=== PATIENT | male | born 1940 | race Caucasian/White ===

== ENCOUNTER 2018-10-01 21:08 | Emergency (ER) | payer MEDICARE, OTHER, SELFPAY ==
[2018-10-01 21:25] VITALS: BP 153/88; PULSE 100; RESP 20; TEMP 36.6; O2SAT 98
--- NOTE | 2018-10-01 21:25 | DI.RAD.S_ITS ---
PROCEDURE: XR FINGER LT MIN 2V INDICATIONS: Hit finger on metal TECHNIQUE: AP hand, 2 views of the left fourth finger(s) acquired. COMPARISON: None. FINDINGS: Bones: No fracture. The left fourth middle phalanges dislocated dorsally. Soft tissues: No suspicious soft tissue calcifications. IMPRESSION: Left fourth PIP joint dislocation. Dictated by: Darling Vergara MD, PhD on 10/01/2018 at 22:01 Approved by: Darling Vergara MD, PhD on 10/01/2018 at 22:03
--- NOTE | 2018-10-01 21:42 | ED.UPPEXIN ---
HPI - Extremity Injury (Upper) General Chief Complaint: Extremity Injury, Upper Stated Complaint: lt 4th finger dislocation Time Seen by Provider: 10/01/18 21:35 Source: patient Mode of arrival: ambulatory Limitations: no limitations History of Present Illness HPI narrative: 77-year-old male here for evaluation of what he thinks is a dislocated left ring finger. He states that he fell backwards landing on his hand. Did not hit his head. No other injuries. He states that he tried to reduce it himself however was unable to. Related Data Home Medications Medication Instructions Recorded Confirmed ALLOPURINOL 500 mg PO Q DAY #0 11/01/06 ASPIRIN (Aspirin *) 81 mg PO Q DAY #0 11/01/06 FENOFIBRATE (TRICOR) 48 mg PO Q DAY #0 11/01/06 Metoprolol Succinate (Toprol Xl) 50 mg PO Q DAY #0 11/01/06 Zolpidem Tartrate (Ambien) 10 mg PO Q DAY #0 11/01/06 [LOVESTATIC] 20 mg Q DAY #0 11/01/06 colchicine 0.6 mg PO QDAY PRN #0 07/21/16 hydrochlorothiazide 12.5 mg PO QDAY #0 07/21/16 Allergies Allergy/AdvReac Type Severity Reaction Status Date / Time latex [LATEX] Allergy Unknown Unverified 10/01/18 21:28 Penicillins [PENICILLINS] Allergy Unknown Unverified 10/01/18 21:28 Review of Systems Constitutional Denies frequent falls and Denies headache(s) ENT Ears, Nose, Mouth, and Throat: Denies headache(s) Musculoskeletal Comments: Pain and deformity to left ring finger Integumentary/Breasts Denies rash Neurologic Denies frequent falls and Denies headache(s) Comments: No tingling to the left ring finger Hematologic/Lymphatic Denies easy bleeding and Denies easy bruising PFSH Medical History Hypertension (Acute) Social History Smoking Status: Former smoker Social History Smoking Status: Former smoker Exam Initial Vital Signs Initial Vital Signs: Vital Signs Temperature 97.9 F 10/01/18 21:25 Pulse Rate 100 H 10/01/18 21:25 Respiratory Rate 20 10/01/18 21:25 Blood Pressure 153/88 H 10/01/18 21:25 Pulse Oximetry 98 10/01/18 21:25 Const General: cooperative and healthy appearing Cardio Pulses: radial pulses present on the left Skin Lesions: no lesions Rashes: no rashes Neuro Sensory Exam: no sensory deficits noted Extrem Other: Obvious pain and deformity to the PIP joint of the left ring finger. Procedures Orthopedic Joint Reduction Joint #1: Time Out Performed: Yes Side: left Joint Reduction Location: finger Analgesia: other (Finger block) Local Anesthesia: lidocaine 1% Amount of anesthesic used (mL): 5 Technique used: traction/counter-traction Post-reduction neuro exam: intact and no change Post-reduction vascular: intact and no change Post Reduction X-Ray Obtained: Yes Post Reduction X-Ray Results: reduced Splint Applied: Yes Patient Tolerated Procedure: Well and No complications Course Orders Ordered: ED Orders 10/01/18 21:25 XR finger LT min 2V Stat 10/01/18 22:07 XR hand LT 2V Stat Vital Signs - 8 hr 10/01/18 21:25 Temperature 97.9 F Pulse Rate 100 H Respiratory Rate 20 Blood Pressure 153/88 H Pulse Oximetry 98 MDM - Extremity Injury (Upper) Imaging Data Finger x-ray left hand: Radiologist's impression: Dislocation to the PIP joint left ring finger X-ray left hand: Radiologist's impression: Reduction of the PIP joint left ring finger MDM Narrative Medical decision making narrative: Patient is neurovascularly intact. No other injuries reported from the fall. Patient does have a dislocated PIP joint left ring finger which was reduced after finger block. Patient was placed in a splint. Was instructed to contact his primary doctor. He was given return precautions. He expressed understanding and agreement with plan. Discharge Plan Departure Patient Disposition: Home Clinical Impression: Dislocation of finger PIP joint Qualifiers: Encounter type: initial encounter Qualified Code(s): S63.289A - Dislocation of proximal interphalangeal joint of unspecified finger, initial encounter Instructions: DI for Finger Dislocation Activity Restrictions/Additional Instructions: Contact your primary care doctor for follow-up. You can ice your finger and I do recommend this to prevent swelling. Return emergency department for any new or worsening symptoms Prescriptions: No Action FENOFIBRATE (TRICOR) 48 mg PO Q DAY Qty: 0 RF: 0 Metoprolol Succinate (Toprol Xl) 50 mg PO Q DAY Qty: 0 RF: 0 Zolpidem Tartrate (Ambien) 10 mg PO Q DAY Qty: 0 RF: 0 ALLOPURINOL 500 mg PO Q DAY Qty: 0 RF: 0 ASPIRIN (Aspirin *) 81 mg PO Q DAY Qty: 0 RF: 0 [LOVESTATIC] 20 mg Q DAY Qty: 0 RF: 0 hydrochlorothiazide 12.5 MG capsule 12.5 mg PO QDAY Qty: 0 RF: 0 colchicine 0.6 MG tablet 0.6 mg PO QDAY PRNQty: 0 RF: 0 Referrals: Baldo Ortega MD [Primary Care Provider] -
--- NOTE | 2018-10-01 22:07 | DI.RAD.S_ITS ---
PROCEDURE: XR HAND LT 2V INDICATIONS: post reduction 4th digit TECHNIQUE: 3 views of the hand(s) acquired. COMPARISON: [facility], CR, XR FINGER LT MIN 2V, 10/01/2018, 21:31. FINDINGS: Bones: Posterior dislocation of the fourth middle phalanx at the fourth proximal interphalangeal joint has been reduced. The alignment is anatomic. There is cortical irregularity at the base of the fourth middle phalanx, suggesting small chip fracture. Carpal bones are normally aligned. No suspicious bony lesions. Soft tissues: Small hyperdensityies in the distal finger may be small soft tissue foreign bodies or artifacts. IMPRESSION: Posterior dislocation of the fourth middle phalanx at the fourth proximal interphalangeal joint has been reduced. The alignment is anatomic. Cortical irregularity at the small base of the fourth middle phalanx suspicious for small chip fracture. Dictated by: Jeffery Chavez M.D. on 10/02/2018 at 8:30 Approved by: Jeffery Chavez M.D. on 10/02/2018 at 8:35
[2018-10-01 22:35] VITALS: BP 128/66; PULSE 60; RESP 12; O2SAT 94
== END 2018-10-01 22:42 | disposition home or self-care (01) ==
PROVIDERS: Emergency Provider Emergency Medicine; Family Provider Internal Medicine; PCP Internal Medicine
DX: S63.255A Unspecified dislocation of left ring finger, initial encounter (principal); W18.30XA Fall on same level, unspecified, initial encounter
CPT/HCPCS: 26770; 29130; 73120; 73140; 99282; 99283

== ENCOUNTER 2019-03-30 07:03 | Day surgery (SDC) | payer MEDICARE, OTHER, SELFPAY ==
[2019-03-30 07:38] VITALS: BP 126/71; PULSE 90; RESP 16; TEMP 36.2; O2SAT 98; BMI 25.1
[2019-03-30] MEDS: PROPARACAINE 0.5% OPHTH SOL 2 DROPS EYE-OP (07:40)
[2019-03-30] MEDS: CATARACT EYE COMPOUND (10 DROPS/SYRINGE) 3 DROPS EYE-OP (07:45)
--- NOTE | 2019-03-30 08:08 | PM.PREOP ---
Pre-operative Note Interval Note History & Physical reviewed/Exam performed by Physician: No Changes to H&P: No
--- NOTE | 2019-03-30 08:08 | PM.OP.1 ---
Operative Date/Time/Diagnoses Pre-op diagnosis: Nuclear cataract right eye Procedure & Clinicians Procedure: Cataract Surgery Same procedure as scheduled: Yes Surgeon: Filemon Hawthorne Anesthesia Type: MAC +/- and Sedation Operative Notes Procedure in detail: Patient brought to the operating suite. Tetracaine drops placed in the right eye. Marking instrument was used to may the vertical and horizontal meridian. Patient was prepped and draped in sterile manner. Wire lid speculum was placed in the eye. Betadine drops were placed on the eye. This was irrigated. Lidocaine jelly was placed on the eye. A paracentesis port was created with a side-port blade. 0.1 mL 1% preservative free lidocaine was injected into the anterior chamber. The anterior chamber was deepened with viscoelastic. 2.6 mm keratome was used to create a temporal clear corneal incision. Cystotome and Utrata forceps were used to create continuous tear capsulorrhexis. Balanced salt solution was used to hydro dissect the nucleus. The phacoemulsification handpiece was inserted and the nucleus was removed using the stop and chop technique. The irrigation aspiration handpiece was inserted and the remaining cortex was removed. Anterior chamber was deepened with viscoelastic. An Murrell [id number] intraocular lens with a power of 27.5 was injected into the capsular bag. Irrigation aspiration handpiece was inserted and the remaining viscoelastic was removed. The lens was rotated to the 180 degree meridian. Incision was hydrated with balanced salt solution and found to be leak free with pressure with Weck-Deena sponges. 0.1 mL Vigamox injected anterior chamber. 0.3 mL Kenalog 10 mg was injected subconjunctivally. Lid speculum was removed. The patient left the operating room in excellent condition. Complications: none Condition: stable Disposition: same day surgery
[2019-03-30] MEDS: TRIAMCINOLONE 50 MG/5 ML VIAL INJ (08:22)
[2019-03-30] MEDS: PHENYLEPHRINE/LIDOCAINE VIAL (OR) 0.2 ML EYE-OP (08:22)
[2019-03-30] MEDS: CHONDROIDTIN/SOD HYALURONATE 1.05 ML SYRINGE INTRAOCULA (08:23)
[2019-03-30] MEDS: MOXIFLOXACIN INJ 5 MG/ML VIAL EYE-OP (08:23)
[2019-03-30] MEDS: TETRACAINE 0.5% OPHTH DROPS 4 ML 2 DROPS EYE-OP (08:24)
[2019-03-30] MEDS: LIDOCAINE JELLY 2% 5 ML 1 APPLIC TOP (08:24)
[2019-03-30] MEDS: BALANCED SALT IRRIG SOLN NO.2 500 ML, EPINEPHrine 1 MG IRR (08:24)
[2019-03-30 08:37] VITALS: BP 119/73; PULSE 98; RESP 16; TEMP 36; O2SAT 97
== END 2019-03-30 08:54 | disposition home or self-care (01) ==
PROVIDERS: Family Provider Internal Medicine; PCP Internal Medicine; Visit Provider Ophthalmology
PROC: (CPT 66984; principal; 2019-03-30 08:15)
DX: H25.11 Age-related nuclear cataract, right eye (principal); I49.9 Cardiac arrhythmia, unspecified
CPT/HCPCS: 66984; J0171; J2250; J3010; J3301; V2787

== ENCOUNTER 2019-04-13 07:02 | Day surgery (SDC) | payer MEDICARE, OTHER, SELFPAY ==
[2019-04-13] MEDS: PROPARACAINE 0.5% OPHTH SOL 2 DROPS EYE-OP (07:45)
[2019-04-13 07:46] VITALS: BP 130/72; PULSE 70; RESP 16; TEMP 36.7; O2SAT 99; BMI 24.4
[2019-04-13] MEDS: CATARACT EYE COMPOUND (10 DROPS/SYRINGE) 3 DROPS EYE-OP (07:50)
--- NOTE | 2019-04-13 08:33 | PM.PREOP ---
Pre-operative Note Interval Note History & Physical reviewed/Exam performed by Physician: No Changes to H&P: No
--- NOTE | 2019-04-13 08:33 | PM.OP.1 ---
Operative Date/Time/Diagnoses Pre-op diagnosis: Nuclear Cataract Left eye Post-op diagnosis: same Procedure & Clinicians Surgeon: Filemon Hawthorne Anesthesia Type: MAC +/- and Sedation Operative Notes Procedure in detail: Patient brought to the operating suite. Tetracaine drops placed in the left eye. Marking instrument used to may the vertical and horizontal meridians. Patient was prepped and draped in sterile manner. Wire lid speculum was placed in the eye. Betadine drops were placed on the eye. This was irrigated. Lidocaine jelly was placed on the eye. A paracentesis port was created with a side-port blade. 0.1 mL 1% preservative free lidocaine was injected into the anterior chamber. The anterior chamber was deepened with viscoelastic. 2.6 mm keratome was used to create a temporal clear corneal incision. Cystotome and Utrata forceps were used to create continuous tear capsulorrhexis. Balanced salt solution was used to hydro dissect the nucleus. The phacoemulsification handpiece was inserted and the nucleus was removed using the stop and chop technique. The irrigation aspiration handpiece was inserted and the remaining cortex was removed incompletely. There was a tear in the posterior capsule and vitreous presented in the anterior chamber. A limited anterior vitrectomy was performed. Anterior chamber was deepened with viscoelastic. The incisinon was enlarged. An Murrell [id number] intraocular lens with a power of 26.0 was injected into the sulcus. Irrigation aspiration handpiece was inserted and the remaining viscoelastic was removed. 0.2 ml Miostat was used to constrict the pupil. Incision was hydrated with balanced salt solution and found to be leak free with pressure with Weck-Deena sponges. 0.1 mL Vigamox injected anterior chamber. 0.3 mL Kenalog 10 mg was injected subconjunctivally. Lid speculum was removed. Timolol drops per placed in the eye. The patient left the operating room in excellent condition. Complications: none Post-operative Condition: stable Disposition: same day surgery
[2019-04-13] MEDS: PHENYLEPHRINE/LIDOCAINE VIAL (OR) 0.2 ML EYE-OP (08:54)
[2019-04-13] MEDS: MOXIFLOXACIN INJ 5 MG/ML VIAL EYE-OP (08:54)
[2019-04-13] MEDS: CHONDROIDTIN/SOD HYALURONATE 1.05 ML SYRINGE INTRAOCULA (08:55)
[2019-04-13] MEDS: TRIAMCINOLONE 50 MG/5 ML VIAL INJ (08:55)
[2019-04-13] MEDS: BALANCED SALT IRRIG SOLN NO.2 500 ML, EPINEPHrine 1 MG IRR (08:55)
[2019-04-13] MEDS: TETRACAINE 0.5% OPHTH DROPS 4 ML 2 DROPS EYE-OP (08:55)
[2019-04-13] MEDS: LIDOCAINE JELLY 2% 5 ML 1 APPLIC TOP (08:55)
[2019-04-13] MEDS: CARBACHOL 1.5 ML VIAL INJ (09:16)
[2019-04-13] MEDS: TIMOLOL 0.5% OPHTH 1 DROPS EYE-LEFT (09:17)
[2019-04-13 09:27] VITALS: BP 133/79; PULSE 88; RESP 15; TEMP 36.2; O2SAT 100
== END 2019-04-13 09:44 | disposition home or self-care (01) ==
LOC: OR 07:04
PROVIDERS: Family Provider Internal Medicine; PCP Internal Medicine; Visit Provider Ophthalmology
PROC: (CPT 66984; principal; 2019-04-13 08:45)
DX: H25.12 Age-related nuclear cataract, left eye (principal)
CPT/HCPCS: 66984; J0171; J2250; J3010; J3301; V2787

== ENCOUNTER 2019-08-22 00:56 | Emergency (ER) | payer MEDICARE, OTHER, SELFPAY ==
--- NOTE | 2019-08-22 01:18 | DI.RAD.S_ITS ---
PROCEDURE: XR KNEE RT 3V INDICATIONS: pain/ hx total left knee TECHNIQUE: 3 views of the knee were acquired. COMPARISON: None. FINDINGS: Bones: No fractures or dislocations. No suspicious bony lesions. Knee arthroplasty hardware is seen. No findings of hardware failure or hardware loosening are seen. Soft tissues: No joint effusion. No suspicious soft tissue calcifications. Atherosclerotic calcification is noted. IMPRESSION: Unremarkable knee arthroplasty hardware, without an acute abnormality identified. Dictated by: Enrico Warner M.D. on 08/22/2019 at 8:06 Approved by: Enrico Warner M.D. on 08/22/2019 at 8:07
[2019-08-22 01:20] VITALS: BP 160/80; PULSE 64; RESP 12; TEMP 37; O2SAT 97
--- NOTE | 2019-08-22 02:02 | ED.LOWEXIN ---
HPI - Extremity Injury (Lower) General Chief Complaint: Extremity Injury, Lower Stated Complaint: left knee intense pain Time Seen by Provider: 08/22/19 01:02 Source: patient Mode of arrival: Ambulatory Limitations: no limitations History of Present Illness HPI Narrative: 78-year-old male former smoker with history of gout and hypertension presents with severe left knee pain in the absence of injury, fever chills. His pains been increasing over the past few days and seems to be worse with motion and improves with rest. He denies any numbness, tingling or weakness. He does state that he stopped few medications including THC and his gout medications recently. He has had joint replacements on this side but is many years removed from that surgery. MD complaint: knee injury Onset (ago): day(s) Type of Injury: unknown Severity: moderate Relieving factors: rest Exacerbating factors: weight bearing and movement Other symptoms: none Related Data Home Medications Medication Instructions Recorded Confirmed ALLOPURINOL 500 mg PO Q DAY PRN #0 11/01/06 04/13/19 colchicine 0.6 mg PO QDAY PRN #0 07/21/16 04/13/19 hydrochlorothiazide 12.5 mg PO QDAY PRN #0 07/21/16 04/13/19 hydrochlorothiazide 50 mg PO DAILY PRN 03/30/19 04/13/19 Previous Rx's Medication Instructions Recorded indomethacin 25 mg PO BID PRN #10 cap 08/22/19 Allergies Allergy/AdvReac Type Severity Reaction Status Date / Time latex [LATEX] Allergy Severe Rash Verified 04/13/19 07:39 Penicillins [PENICILLINS] Allergy Severe swelling Verified 04/13/19 07:39 lymph nodes Review of Systems Constitutional Constitutional: Denies chills, Denies fatigue, Denies fever(s), Denies frequent falls, Denies lethargy and Denies weakness Eyes Eyes: Denies change in vision, Denies eye discharge, Denies irritation and Denies loss of vision ENT Ears, Nose, Mouth, and Throat: Denies change in voice, Denies dizziness, Denies neck pain, Denies sore throat and Denies throat swelling Cardiovascular Cardiovascular: Denies chest pain, Denies irregular heart rhythm, Denies lightheadedness, Denies palpitations, Denies dyspnea, Denies dyspnea on exertion and Denies orthopnea Respiratory Respiratory: Denies cough, Denies dyspnea, Denies dyspnea on exertion and Denies wheezing Gastrointestinal Gastrointestinal: Denies abdominal pain, Denies change in bowel habits, Denies diarrhea, Denies nausea and Denies vomiting Genitourinary Genitourinary: Denies hematuria, Denies flank pain, Denies urinary incontinence and Denies urinary urgency Musculoskeletal Musculoskeletal: Denies back pain, Reports limited range of motion, Denies muscle weakness, Denies neck pain, Denies numbness and Denies tingling Integumentary/Breasts Skin/Breast: Denies pruritus, Denies erythema, Denies rash and Denies wounds Neurologic Neurologic: Denies behavioral changes, Denies confusion, Denies dizziness, Denies frequent falls, Denies loss of vision, Denies numbness, Denies tingling and Denies weakness Psychiatric Psychiatric: Denies anxiety, Denies behavioral changes, Denies confusion, Denies depression, Denies homicidal ideation and Denies suicidal ideation Endocrine Endocrine: Denies fatigue, Denies flushing and Denies palpitations Hematologic/Lymphatic Hematologic/Lymphatic: Denies easy bruising Allergic/Immunologic Allergic/Immunologic: Denies urticaria, Denies throat swelling and Denies wheezing Patient History Medical History Hypertension (Acute) Social History household members: friend(s) Smoking Status: Former smoker Smoking Status: Former smoker alcohol intake frequency: 0-2 drinks per day Substance Use Type: marijuana Exam Narrative Exam Narrative: GENERAL: [78] year old patient appears stated age. Well-nourished, well-developed patient, in mild distress. HEAD: Atraumatic. Normocephalic. EYES: Pupils equal round and reactive. Extraocular motions intact. No scleral icterus. No injection or drainage. ENT: Nose without bleeding, purulent drainage. Throat without erythema, tonsillar hypertrophy or exudate. Airway patent. NECK: Trachea midline. Non tender CARDIOVASCULAR: Regular rate and rhythm without murmurs, gallops, or rubs. RESPIRATORY: Clear to auscultation. Breath sounds equal bilaterally. No wheezes, rales, or rhonchi. GASTROINTESTINAL: Abdomen soft, non-tender, nondistended. EXTREMITIES: Full but painful range of motion of left knee. No erythema but minimal warmth and effusion. Patient has pain with active range of motion but none with passive range of motion, septic arthritis unlikely BACK: Nontender without deformity or crepitance. No flank tenderness. NEURO: AOx3. SKIN: No rash or erythema of visible areas Initial Vital Signs Initial Vital Signs: Vital Signs Temperature 98.6 F 08/22/19 01:20 Pulse Rate 64 08/22/19 01:20 Respiratory Rate 12 08/22/19 01:20 Blood Pressure 160/80 H 08/22/19 01:20 Pulse Oximetry 97 08/22/19 01:20 Course Orders Ordered: Discontinued Medications Colchicine (Colcrys) 1.2 mg PO NOW ONE Stop: 08/22/19 03:21 Last Admin: 08/22/19 03:32 Dose: 1.2 mg Documented by: PHILIP Indomethacin (Indocin) 25 mg PO NOW ONE Stop: 08/22/19 03:21 Last Admin: 08/22/19 03:32 Dose: Not Given Documented by: PHILIP Vital Signs Vital signs: Vital Signs - 8 hr 08/22/19 01:20 Temperature 98.6 F Pulse Rate 64 Respiratory Rate 12 Blood Pressure 160/80 H Pulse Oximetry 97 MDM - Extremity Injury (Lower) Lab Data Result diagrams: 08/22/19 02:25 08/22/19 02:25 Labs: Lab Results 08/22/19 08/22/19 Range/Units 02:25 02:25 WBC 7.5 (4.5-11.0) X10^3/uL RBC 4.63 (4.5-5.9) X10^6/uL Hgb 13.8 (13.5-17.5) g/dL Hct 40.7 L (41-53) % MCV 87.9 (80-100) fL MCH 29.8 (26-34) PG MCHC 33.9 (30-36) % RDW 14.6 (11.6-14.8) % Plt Count 157 (150-400) X10^3/uL Neut % (Auto) 70.9 (50-75) % Lymph % (Auto) 15.0 L (25-40) % Kaufman % (Auto) 9.3 (3-14) % Eos % (Auto) 4.2 H (2-4) % Baso % (Auto) 0.6 (0-2) % Neut # (Auto) 5300 (7031-5540) /uL Lymph # (Auto) 1100 (8728-3987) /uL Kaufman # (Auto) 700 (0-900) /uL Eos # (Auto) 300 (0-450) /uL Baso # (Auto) 0 (0-100) /uL ESR 11 (0-15) MM/HR Sodium 140 (137-145) mmol/L Potassium 4.9 (3.4-5.1) mmol/L Chloride 109 H (98-107) mmol/L Carbon Dioxide 23 (22-32) mmol/L BUN 60 H (9-20) mg/dL Creatinine 2.00 H (0.66-1.25) mg/dL Estimated GFR 32.3 L (>60) mL/min BUN/Creatinine Ratio 30.0 H (6-22) Glucose 114 H (80-110) mg/dL Uric Acid 8.0 (3.5-8.5) mg/dL Calcium 9.5 (8.4-10.2) mg/dL C-Reactive Protein 1.7 H (<1.0) mg/dL MDM Narrative Medical decision making narrative: Multiple etiologies for patient's symptoms considered including: [Gouty arthritis versus septic arthritis versus other] Patient's symptoms improved or duration of stay with above-stated therapies. Findings and discharge diagnosis discussed with patient/family followed by verbalization of understanding Return precautions discussed with patient/family whom verbalize understanding. Discharge Plan Departure Patient Disposition: Home Clinical Impression: Acute knee pain Qualifiers: Laterality: left Qualified Code(s): M25.562 - Pain in left knee Discharge Date/Time: 08/22/19 03:41 Instructions: DI for Knee Pain Activity Restrictions/Additional Instructions: *You have been diagnosed with [acute left knee pain] *What to do: *Take medications as directed *Follow up with your orthopedic provider in 2-3 days, call for an appointment. Let them know you were seen in the Emergency Department and that we ask that you be seen in follow up *Return to ER if you should have any new, worsening or concerning symptoms Prescriptions: New indomethacin 25 mg capsule 25 mg PO BID PRN (Reason: pain (scale score 4-6)) Qty: 10 RF: 0 No Action ALLOPURINOL 500 mg PO Q DAY PRN (Reason: kidney ) Qty: 0 RF: 0 hydrochlorothiazide 12.5 MG capsule 12.5 mg PO QDAY PRN (Reason: Edema) Qty: 0 RF: 0 colchicine 0.6 MG tablet 0.6 mg PO QDAY PRN (Reason: (Drug) Ingestion) Qty: 0 RF: 0 hydrochlorothiazide 50 mg tablet 50 mg PO DAILY PRN (Reason: Edema) RF: 0 Referrals: Baldo Ortega MD [Primary Care Provider] - Filemon Cuevas MD [Physician] -
[2019-08-22 02:40] LABS: Add Manual Diff / Slide Review NO; Basophils Absolute Auto 0 /uL (0-100); Basophils Percent Auto 0.6 % (0-2); Eosinophils Absolute Auto 300 /uL (0-450); Eosinophils Percent Auto 4.2 % (2-4); Hematocrit 40.7 % (41-53); Hemoglobin 13.8 g/dL (13.5-17.5); Lymphocytes Absolute Auto 1100 /uL (1100-4500); Mean Corpuscular HGB Conc 33.9 % (30-36); Mean Corpuscular Hemoglobin 29.8 PG (26-34); Mean Corpuscular Volume 87.9 fL (80-100); Monocytes Absolute Auto 700 /uL (0-900); Monocytes Percent Auto 9.3 % (3-14); Neutrophils Absolute Auto 5300 /uL (1500-7000); Neutrophils Percent Auto 70.9 % (50-75); Platelet Count 157 X10^3/uL (150-400); Red Blood Cell Count 4.63 X10^6/uL (4.5-5.9); Red Cell Distribution Width 14.6 % (11.6-14.8); White Blood Cell Count 7.5 X10^3/uL (4.5-11.0)
[2019-08-22 02:47] LABS: Blood Urea Nitrogen 60 mg/dL (9-20); C-Reactive Protein Quant 1.7 mg/dL (<1.0); Calcium 9.5 mg/dL (8.4-10.2); Carbon Dioxide 23 mmol/L (22-32); Chloride 109 mmol/L (98-107); Estimated Glomerular Filt Rate 32.3 mL/min (>60); Glucose 114 mg/dL (80-110); HEMOLYSIS < 15 (0-50); Potassium 4.9 mmol/L (3.4-5.1); Sodium 140 mmol/L (137-145)
[2019-08-22 02:59] LABS: Erythrocyte Sedimentation Rate 11 MM/HR (0-15)
[2019-08-22] MEDS: COLCHICINE 0.6 MG TABLET 1.2 MG PO (03:32)
--- NOTE | 2019-08-22 03:33 | PC.NURSE ---
indomethacin not given due to no med in hospital.
== END 2019-08-22 03:41 | disposition home or self-care (01) ==
PROVIDERS: Emergency Provider Emergency Medicine; Family Provider Internal Medicine; PCP Internal Medicine
DX: M25.562 Pain in left knee (principal)
CPT/HCPCS: 36415; 73562; 80048; 84550; 85025; 85651; 86140; 99284

== ENCOUNTER → 2020-01-19 15:43 | Outpatient (CLI) | payer MEDICARE, OTHER, SELFPAY ==
--- NOTE | 2020-01-19 | DI.RAD.S_ITS ---
PROCEDURE: XR LUMBAR SPINE 2-3V INDICATIONS: Osteoarthritis TECHNIQUE: 3 views of the lumbar spine were acquired. COMPARISON: None. FINDINGS: Bones: 5 [id number] vertebrae are present. Trace anterolisthesis L4 on 5. Trace retrolisthesis L5 on S1. Severe disc height loss at L5-S1 and mild endplate spur formation. Mild disc height loss at 3 available except for L4-5. Facet hypertrophy and sclerosis at L5-S1.. No vertebral body compression fractures. No suspicious bony lesions. Soft tissues: Overlying bowel gas pattern is normal. The mild to moderate calcific atherosclerosis. Multiple surgical clips in the gallbladder fossa. No suspicious soft tissue calcifications. IMPRESSION: 1. 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 2. Mild disc degeneration in the upper lumbar spine. Dictated by: Allison Castaneda M.D. on 01/19/2020 at 16:22 Approved by: Allison Castaneda M.D. on 01/19/2020 at 16:24
== END ==
PROVIDERS: Family Provider Internal Medicine; PCP Internal Medicine; Referring Provider Internal Medicine; Visit Provider Internal Medicine
DX: M47.817 Spondylosis without myelopathy or radiculopathy, lumbosacral region (principal); M51.36 Other intervertebral disc degeneration, lumbar region
CPT/HCPCS: 72100

== ENCOUNTER → 2020-07-11 11:21 | Outpatient (CLI) | payer MEDICARE, OTHER, SELFPAY ==
[2020-07-11 12:59] LABS: Add Manual Diff / Slide Review NO; Basophils Absolute Auto 0 /uL (0-100); Basophils Percent Auto 0.6 % (0-2); Eosinophils Absolute Auto 200 /uL (0-450); Eosinophils Percent Auto 2.8 % (2-4); Hematocrit 39.8 % (41-53); Hemoglobin 13.1 g/dL (13.5-17.5); Lymphocytes Absolute Auto 800 /uL (1100-4500); Lymphocytes Percent Auto 11.8 % (25-40); Mean Corpuscular HGB Conc 32.9 % (30-36); Mean Corpuscular Hemoglobin 29.7 PG (26-34); Mean Corpuscular Volume 90.5 fL (80-100); Monocytes Absolute Auto 400 /uL (0-900); Monocytes Percent Auto 5.2 % (3-14); Neutrophils Absolute Auto 5400 /uL (1500-7000); Neutrophils Percent Auto 79.6 % (50-75); Platelet Count 187 X10^3/uL (150-400); White Blood Cell Count 6.7 X10^3/uL (4.5-11.0)
[2020-07-11 13:27] LABS: Alanine Aminotransferase 12 IU/L (<50); Albumin 3.8 g/dL (3.5-5.0); Albumin Globulin Ratio 1.4 (1.0-2.8); Alkaline Phosphatase 77 U/L (38-126); Aspartate Aminotransferase 17 IU/L (17-59); BUN Creatinine Ratio 20.3 (6-22); Bilirubin Total 0.8 mg/dL (0.2-1.3); Blood Urea Nitrogen 47 mg/dL (9-20); Carbon Dioxide 27 mmol/L (22-32); Chloride 106 mmol/L (98-107); Cholesterol 166 mg/dL (140-199); Estimated Glomerular Filt Rate 27.3 mL/min (>60); Globulin 2.7 g/dL (1.7-4.1); Glucose 183 mg/dL (80-110); HDL Cholesterol 34 mg/dL (40-60); HEMOLYSIS < 15 (0-50); LDL Cholesterol Calculated 99 mg/dL (<100); Potassium 4.3 mmol/L (3.4-5.1); Sodium 139 mmol/L (137-145); Total Protein 6.5 g/dL (6.3-8.2); Triglycerides 164 mg/dL (35-150)
[2020-07-11 14:00] LABS: TSH w/ Reflex to FT4 2.41 uIU/mL (0.47-4.68)
== END ==
PROVIDERS: Family Provider Internal Medicine; PCP Internal Medicine; Referring Provider Internal Medicine; Visit Provider Internal Medicine
DX: R53.83 Other fatigue (principal); E78.2 Mixed hyperlipidemia
CPT/HCPCS: 36415; 80053; 80061; 84443; 85025

== ENCOUNTER 2022-01-22 07:16 | Emergency (ER) | payer MEDICARE, OTHER, SELFPAY ==
[2022-01-22] VITALS (60 sets, daily range): BP systolic 103–192; BP diastolic 60–119; PULSE 75–123; RESP 15–49; TEMP 36.7; O2SAT 87–100; BMI 28.5
--- NOTE | 2022-01-22 07:22 | ED_ITS ---
HPI - General Adult General Chief complaint: Chest Pain Stated complaint: chest pain Time Seen by Provider: 01/22/22 07:22 History of Present Illness HPI narrative: 81-year-old gentleman with history of atrial fibrillation on Pradaxa, gout, lower extremity edema and peripheral neuropathy without diabetes diagnosis, chronic diarrhea after cholecystectomy presents with massive pressure throughout his chest and weakness in his left arm. He describes the pressure in his chest as radiating from his belly button up to his clavicle, painful, squeezing tight. Not associated with diaphoresis but mild shortness of breath secondary to the pain. First episode was on the last in our seen by his PCP. Second episode was on the worse lasted 3 hours. Today's episode started at 2:00 a.m. lasted about 5 hours and has essentially resolved by the time he seen in the emergency department. Does describe left arm weakness without paresthesia. This has been notable every time he has had the pain but it is unclear whether that weakness resolved after the episode on the . He has never had a prior heart attack or stroke. He is not complaining of headaches, nausea or vomiting. Notes that the chronic diarrhea does well with b.i.d. loperamide and he actually has not had issues over the last number of days. Related Data Home Medications Medication Instructions Recorded Confirmed ALLOPURINOL 500 mg PO Q DAY PRN kidney ##0 11/01/06 04/13/19 colchicine 0.6 mg tablet 0.6 mg PO QDAY PRN (Drug) 07/21/16 04/13/19 Ingestion ##0 hydrochlorothiazide 12.5 mg capsule 12.5 mg PO QDAY PRN Edema ##0 07/21/16 04/13/19 hydrochlorothiazide 50 mg tablet 50 mg PO DAILY PRN Edema 03/30/19 04/13/19 Previous Rx's Medication Instructions Recorded indomethacin 25 mg capsule 25 mg PO BID PRN pain (scale score 08/22/19 4-6) #10 caps Allergies Allergy/AdvReac Type Severity Reaction Status Date / Time latex [LATEX] Allergy Severe Rash Verified 04/13/19 07:39 Penicillins [PENICILLINS] Allergy Severe swelling Verified 04/13/19 07:39 lymph nodes Review of Systems Review of Systems Narrative: Remainder of complete review of systems is otherwise unremarkable except for that included in the HPI. Patient History Medical History (Updated 01/22/22 @ 11:39 by Christy Santizo MD) Chronic atrial fibrillation Chronic diarrhea Hypertension Peripheral neuropathy Social History household members: friend(s) Smoking Status: Former smoker Smoking Status: Former smoker alcohol intake frequency: 0-2 drinks per day Substance Use Type: marijuana Exam Initial Vital Signs Initial Vital Signs: Vital Signs Pulse Rate 123 H 01/22/22 07:23 Respiratory Rate 21 01/22/22 07:23 Pulse Oximetry 98 01/22/22 07:23 General: Healthy appearing, in no acute distress. Able to give a complete and eloquent history. Well-nourished well-developed HEENT: Moist mucous membranes, normal sclera with reactive pupils, Neck: No JVD, no carotid bruits, supple Respiratory: Lungs are clear to auscultation, no wheezing no rales no rhonchi. Full and symmetrical air movement Cardiac: Tachycardic and irregular with no murmurs no bruits. Asymmetric blood pressure readings. Bilateral palpable inguinal pulses Abdomen: Soft, nontender, no abdominal bruits, good bowel tones, no flank pain Skin: Warm and dry, no rashes, no lower extremity edema Neurologic: Grossly neurologically intact with no obvious asymmetries or abnormalities. No obvious objective weakness in the left upper extremity. Stocking distribution peripheral neuropathy from proximal ankles to toes bilaterally Extremities: No trauma, well perfused, no chronic venous stasis changes Psych: Cooperative, appropriate insight and affect Course Orders Ordered: ED Orders 01/22/22 09:42 COVID19 -Nasal RAPID/Pre-Proc Stat Trop I [Troponin I] Stat 01/22/22 14:07 Partial Thromboplastin Time Q6H 01/22/22 15:40 Trop I [Troponin I] Stat 01/22/22 17:30 Partial Thromboplastin Time Q6H 01/22/22 23:30 Partial Thromboplastin Time Q6H 01/23/22 05:30 Partial Thromboplastin Time Q6H Heparin Sodium/Dextrose (Heparin Drip) 25,000 unit in 500 mls @ 22.317 mls/hr IV CONT TANYA; Protocol Last Admin: 01/22/22 12:04 Dose: 10.75 units/kg/hr, 20 mls/hr Documented By: MLM Nitroglycerin (Nitroglycerin) 50 mg in 250 mls @ 1.5 mls/hr IV TITRATE [facility]; Protocol Last Titration: 01/22/22 13:59 Dose: 15 mcg/min, 4.5 mls/hr Documented By: Titration: 01/22/22 13:39 Dose: 10 mcg/min, 3 mls/hr Documented By: MLGenaro Admin: 01/22/22 12:36 Dose: 5 mcg/min, 1.5 mls/hr Documented By: COREY Discontinued Medications Acetaminophen (Acetaminophen 325 Mg Tablet) 975 mg PO NOW ONE Stop: 01/22/22 15:23 Last Admin: 01/22/22 15:35 Dose: 975 mg Documented By: COREY Heparin Sodium (Porcine) (Heparin 5,000 Unit/Ml Vial) 5,000 unit IV NOW ONE Stop: 01/22/22 11:24 Last Admin: 01/22/22 12:05 Dose: 5,000 unit Documented By: COREY Metoprolol Tartrate (Metoprolol Tartrate 5 Mg/5 Ml Inj) 5 mg IV Q5M [facility] Stop: 01/22/22 07:56 Last Admin: 01/22/22 08:20 Dose: 5 mg Documented By: Admin: 01/22/22 08:15 Dose: 5 mg Documented By: Admin: 01/22/22 08:09 Dose: 5 mg Documented By: RAZA Metoprolol Tartrate (Metoprolol Tartrate 5 Mg/5 Ml Inj) 5 mg IV Q5M [facility] Stop: 01/22/22 08:26 Last Admin: 01/22/22 10:46 Dose: Not Given Documented By: Admin: 01/22/22 10:45 Dose: Not Given Documented By: Admin: 01/22/22 10:45 Dose: Not Given Documented By: RAZA Metoprolol Tartrate (Metoprolol Ir 25 Mg Tablet) 25 mg PO NOW ONE Stop: 01/22/22 11:41 Last Admin: 01/22/22 12:05 Dose: 25 mg Documented By: COREY Vital Signs Vital signs: Vital Signs - 8 hr 01/22/22 09:30 01/22/22 09:30 01/22/22 10:00 Pulse Rate 80 Respiratory Rate 22 Blood Pressure 156/96 H 162/108 H Pulse Oximetry 98 01/22/22 10:00 06/21/22 11:13 01/22/22 11:15 Pulse Rate 81 77 Respiratory Rate 17 Blood Pressure 162/112 H Pulse Oximetry 98 100 01/22/22 11:15 01/22/22 12:36 01/22/22 11:30 Pulse Rate 85 93 H 84 Respiratory Rate 26 H 24 Blood Pressure 167/97 H Pulse Oximetry 98 98 01/22/22 12:00 01/22/22 12:12 01/22/22 12:12 Pulse Rate 85 84 Respiratory Rate 21 Blood Pressure 161/90 H Pulse Oximetry 100 99 01/22/22 12:30 01/22/22 12:30 01/22/22 12:53 Pulse Rate 83 85 Respiratory Rate 18 28 H Blood Pressure 167/92 H Pulse Oximetry 98 98 01/22/22 12:53 01/22/22 12:55 01/22/22 12:55 Pulse Rate 82 Respiratory Rate 19 Blood Pressure 157/107 H 185/91 H Pulse Oximetry 98 01/22/22 13:00 01/22/22 13:01 01/22/22 13:01 Pulse Rate 80 78 Respiratory Rate 23 23 Blood Pressure 183/86 H Pulse Oximetry 97 97 01/22/22 13:05 01/22/22 13:05 01/22/22 13:11 Pulse Rate 85 95 H Respiratory Rate 23 30 H Blood Pressure 190/90 H Pulse Oximetry 98 95 01/22/22 13:11 01/22/22 13:21 01/22/22 13:21 Pulse Rate 91 H Respiratory Rate 23 Blood Pressure 175/100 H 160/101 H Pulse Oximetry 96 01/22/22 13:30 01/22/22 13:39 01/22/22 13:39 Pulse Rate 95 H 87 Respiratory Rate 39 H 26 H Blood Pressure 171/93 H Pulse Oximetry 97 98 01/22/22 13:40 01/22/22 13:40 01/22/22 13:45 Pulse Rate 81 80 Respiratory Rate 16 17 Blood Pressure 172/90 H Pulse Oximetry 99 97 01/22/22 13:45 01/22/22 13:50 01/22/22 13:50 Pulse Rate 80 Respiratory Rate 16 Blood Pressure 173/94 H 152/94 H Pulse Oximetry 97 01/22/22 13:55 01/22/22 13:55 01/22/22 14:00 Pulse Rate 80 Respiratory Rate 18 Blood Pressure 173/97 H 155/79 H Pulse Oximetry 98 01/22/22 14:00 01/22/22 14:06 01/22/22 14:06 Pulse Rate 79 87 Respiratory Rate 29 H 30 H Blood Pressure 148/92 H Pulse Oximetry 97 96 01/22/22 14:10 01/22/22 14:10 01/22/22 14:15 Pulse Rate 94 H Respiratory Rate 22 Blood Pressure 140/86 157/98 H Pulse Oximetry 95 01/22/22 14:15 01/22/22 14:20 01/22/22 14:20 Pulse Rate 83 80 Respiratory Rate 22 49 H Blood Pressure 142/100 H Pulse Oximetry 96 97 01/22/22 14:25 01/22/22 14:25 01/22/22 14:30 Pulse Rate 85 Respiratory Rate 16 Blood Pressure 152/97 H 147/107 H Pulse Oximetry 96 01/22/22 14:30 01/22/22 14:35 01/22/22 14:35 Pulse Rate 83 81 Respiratory Rate 19 21 Blood Pressure 160/98 H Pulse Oximetry 96 97 01/22/22 14:40 01/22/22 14:40 01/22/22 14:45 Pulse Rate 81 80 Respiratory Rate 19 21 Blood Pressure 158/74 H Pulse Oximetry 96 95 01/22/22 14:45 01/22/22 14:50 01/22/22 14:50 Pulse Rate 83 Respiratory Rate 17 Blood Pressure 126/67 119/63 Pulse Oximetry 95 01/22/22 14:55 01/22/22 14:55 01/22/22 15:00 Pulse Rate 80 Respiratory Rate 18 Blood Pressure 119/69 127/65 Pulse Oximetry 96 01/22/22 15:00 01/22/22 15:05 01/22/22 15:05 Pulse Rate 78 86 Respiratory Rate 15 18 Blood Pressure 127/84 Pulse Oximetry 96 96 01/22/22 15:30 01/22/22 16:00 01/22/22 16:19 Pulse Rate 82 80 81 Respiratory Rate 18 25 H 27 H Blood Pressure Pulse Oximetry 96 96 97 01/22/22 16:19 01/22/22 16:30 01/22/22 16:30 Pulse Rate 82 Respiratory Rate 33 H Blood Pressure 107/60 106/64 Pulse Oximetry 97 01/22/22 16:45 01/22/22 16:45 01/22/22 17:00 Pulse Rate 81 Respiratory Rate 47 H Blood Pressure 131/74 129/77 Pulse Oximetry 97 01/22/22 17:00 Pulse Rate 81 Respiratory Rate 22 Blood Pressure Pulse Oximetry 96 Medical Decision Making Lab Data Result diagrams: 01/22/22 07:25 01/22/22 07:25 Labs: Lab Results 01/22/22 01/22/22 01/22/22 Range/Units 07:25 07:25 07:25 WBC 8.6 (4.5-11.0) X10^3/uL RBC 4.97 (4.5-5.9) X10^6/uL Hgb 14.2 (13.5-17.5) g/dL Hct 42.5 (41-53) % MCV 85.6 (80-100) fL MCH 28.5 (26-34) PG MCHC 33.4 (30-36) % RDW 16.2 H (11.6-14.8) % Plt Count 177 (150-400) X10^3/uL Neut % (Auto) 76.8 H (50-75) % Lymph % (Auto) 12.5 L (25-40) % [place] % (Auto) 6.3 (3-14) % Eos % (Auto) 3.7 (2-4) % Baso % (Auto) 0.7 (0-2) % Neut # (Auto) 6600 (8456-3551) /uL Lymph # (Auto) 1100 (9743-5202) /uL [place] # (Auto) 500 (0-900) /uL Eos # (Auto) 300 (0-450) /uL Baso # (Auto) 100 (0-100) /uL APTT (26.4-36.2) SECONDS Sodium 142 (137-145) mmol/L Potassium 4.4 (3.4-5.1) mmol/L Chloride 104 (98-107) mmol/L Carbon Dioxide 28 (22-32) mmol/L BUN 84 H (9-20) mg/dL Creatinine 2.93 H (0.66-1.25) mg/dL Estimated GFR 21 L (>60) mL/min BUN/Creatinine Ratio 28.7 H (6-22) Glucose 178 H (80-110) mg/dL Calcium 9.2 (8.4-10.2) mg/dL Magnesium 1.5 L (1.6-2.3) mg/dL Total Bilirubin 0.8 (0.2-1.3) mg/dL AST 32 (17-59) IU/L ALT 14 (<50) IU/L Alkaline Phosphatase 85 (38-126) U/L Total Creatine Kinase 121 (55-170) U/L CK-MB (CK-2) 5.34 H (<2.37) ng/mL CK-MB (CK-2) Rel Index 4.4 (1.5-5.0) % Troponin I 0.718 H* (0.01-0.034) ng/mL NT-Pro-B Natriuret Pep 6160 H (<450) pg/mL Total Protein 7.6 (6.3-8.2) g/dL Albumin 4.3 (3.5-5.0) g/dL Globulin 3.3 (1.7-4.1) g/dL Albumin/Globulin Ratio 1.3 (1.0-2.8) Lipase 86 (23-300) U/L SARS-CoV-2 (PCR) (Negative) 01/22/22 01/22/22 01/22/22 Range/Units 09:42 09:42 14:07 WBC (4.5-11.0) X10^3/uL RBC (4.5-5.9) X10^6/uL Hgb (13.5-17.5) g/dL Hct (41-53) % MCV (80-100) fL MCH (26-34) PG MCHC (30-36) % RDW (11.6-14.8) % Plt Count (150-400) X10^3/uL Neut % (Auto) (50-75) % Lymph % (Auto) (25-40) % [place] % (Auto) (3-14) % Eos % (Auto) (2-4) % Baso % (Auto) (0-2) % Neut # (Auto) (0031-8889) /uL Lymph # (Auto) (5097-6484) /uL [place] # (Auto) (0-900) /uL Eos # (Auto) (0-450) /uL Baso # (Auto) (0-100) /uL APTT 35 (26.4-36.2) SECONDS Sodium (137-145) mmol/L Potassium (3.4-5.1) mmol/L Chloride (98-107) mmol/L Carbon Dioxide (22-32) mmol/L BUN (9-20) mg/dL Creatinine (0.66-1.25) mg/dL Estimated GFR (>60) mL/min BUN/Creatinine Ratio (6-22) Glucose (80-110) mg/dL Calcium (8.4-10.2) mg/dL Magnesium (1.6-2.3) mg/dL Total Bilirubin (0.2-1.3) mg/dL AST (17-59) IU/L ALT (<50) IU/L Alkaline Phosphatase (38-126) U/L Total Creatine Kinase (55-170) U/L CK-MB (CK-2) (<2.37) ng/mL CK-MB (CK-2) Rel Index (1.5-5.0) % Troponin I 1.050 H* (0.01-0.034) ng/mL NT-Pro-B Natriuret Pep (<450) pg/mL Total Protein (6.3-8.2) g/dL Albumin (3.5-5.0) g/dL Globulin (1.7-4.1) g/dL Albumin/Globulin Ratio (1.0-2.8) Lipase (23-300) U/L SARS-CoV-2 (PCR) Negative (Negative) 01/22/22 Range/Units 15:40 WBC (4.5-11.0) X10^3/uL RBC (4.5-5.9) X10^6/uL Hgb (13.5-17.5) g/dL Hct (41-53) % MCV (80-100) fL MCH (26-34) PG MCHC (30-36) % RDW (11.6-14.8) % Plt Count (150-400) X10^3/uL Neut % (Auto) (50-75) % Lymph % (Auto) (25-40) % [place] % (Auto) (3-14) % Eos % (Auto) (2-4) % Baso % (Auto) (0-2) % Neut # (Auto) (1308-1842) /uL Lymph # (Auto) (8608-9764) /uL [place] # (Auto) (0-900) /uL Eos # (Auto) (0-450) /uL Baso # (Auto) (0-100) /uL APTT (26.4-36.2) SECONDS Sodium (137-145) mmol/L Potassium (3.4-5.1) mmol/L Chloride (98-107) mmol/L Carbon Dioxide (22-32) mmol/L BUN (9-20) mg/dL Creatinine (0.66-1.25) mg/dL Estimated GFR (>60) mL/min BUN/Creatinine Ratio (6-22) Glucose (80-110) mg/dL Calcium (8.4-10.2) mg/dL Magnesium (1.6-2.3) mg/dL Total Bilirubin (0.2-1.3) mg/dL AST (17-59) IU/L ALT (<50) IU/L Alkaline Phosphatase (38-126) U/L Total Creatine Kinase (55-170) U/L CK-MB (CK-2) (<2.37) ng/mL CK-MB (CK-2) Rel Index (1.5-5.0) % Troponin I 3.850 H* (0.01-0.034) ng/mL NT-Pro-B Natriuret Pep (<450) pg/mL Total Protein (6.3-8.2) g/dL Albumin (3.5-5.0) g/dL Globulin (1.7-4.1) g/dL Albumin/Globulin Ratio (1.0-2.8) Lipase (23-300) U/L SARS-CoV-2 (PCR) (Negative) Urine Dip Bedside Urine Glucose Negative Bedside Urine Bilirubin - Negative Bedside Urine Ketone - Negative Urine Specific [place] 1.015 Bedside Urine Occult Blood + Bedside Urine pH 7.0 Bedside Urine Protein ++ 100 Bedside Urine Urobilinogen - Negative Bedside Urine Nitrite - Negative Bedside Urine Leukocytes - Negative Esterase Point of care testing: Urine Dip Bedside Urine Glucose Negative Bedside Urine Bilirubin - Negative Bedside Urine Ketone - Negative Urine Specific [place] 1.015 Bedside Urine Occult Blood + Bedside Urine pH 7.0 Bedside Urine Protein ++ 100 Bedside Urine Urobilinogen - Negative Bedside Urine Nitrite - Negative Bedside Urine Leukocytes - Negative Esterase Imaging Data CT scan - head: Radiologist's Impression: FINDINGS:? Image quality:? Excellent.? ? CSF spaces:? Basal cisterns are patent.? No extra-axial fluid collections.? The ventricles are symmetric in size and shape.? ? Brain:? No intracranial bleeds or masses.? There is cerebral volume loss for age, with resultant ventricular and sulcal prominence.? There are periventricular and deep white matter chronic small vessel ischemic changes.? There is intracranial internal carotid artery atherosclerosis.? ? Skull and face:? Calvarium and visualized facial bones appear intact, without suspicious lesions.? ? Sinuses:? Visualized sinuses and mastoids are clear.? ? ? IMPRESSION:? Unremarkable intracranial study, without an imaging explanation found for the patient's presenting history. ? ? If there is strong clinical suspicion for an acute stroke, please consider a brain MRI for further evaluation, as it is more sensitive (assuming that there is no contraindication to MRI). ? ? Dictated by: Enrico Warner M.D. on 01/22/2022 at 7:53? ?? CTA Chest abd pelvis: Radiologist's Impression: FINDINGS:? Image quality:? Excellent.? ? AORTA:? The ascending thoracic aorta demonstrates normal course and caliber.? Moderate atheromatous plaquing calcification is present within the thoracic aortic arch.? Scattered atheromatous calcification and plaque is present within the descending thoracic aorta.? Scattered atheromatous calcifications are present throughout the abdominal aorta. ?No aneurysmal dilatation.? No mural hematoma or thrombus.? No periaortic fat stranding or free fluid. ? CHEST:? Lungs and pleura:? No acute airspace opacities.? There is mild atelectasis at the bilateral lung bases.? There is questionable consolidation versus a small pulmonary nodule at the lingular base which measures 1.1 x1.0 cm in diameter (series 9/image 318 and series 10/image 33).? No pleural effusions or pneumothorax.? Central and peripheral airways are patent and normal in caliber.? ? Mediastinum:? Heart size is normal.? No pericardial effusion.? No mediastinal or hilar adenopathy by size criteria.? Central pulmonary arteries are normal in size.? Esophagus is normal in caliber.? No hiatal hernias.? ? Bones and chest wall:? No axillary adenopathy by size criteria.? Thyroid gland is unremarkable.? No suspicious bony lesions.? No vertebral body compression fractures.? ? ? ABDOMEN:? Vasculature:? The celiac axis is widely patent.? A moderate stenosis is present at the origin of the SMA.? There are likely high-grade stenoses at the origins of the bilateral main renal arteries.? There is a patent right accessory renal artery.? The RASHEL is patent. ? Solid organs:? Liver is normal in size and enhancement.? Gallbladder is surgically absent .? Biliary system is non dilated.? Pancreas enhances normally.? Spleen is normal in size and enhancement.? No adrenal nodules.? Both kidneys are normal in size and enhancement, without hydronephrosis.? ? Peritoneum and bowel:? No free fluid or air.? Bowel loops are normal in caliber and wall thickness. The appendix is thin walled and gas filled.? There are innumerable colonic diverticula. No evidence for diverticulitis. ? Nodes and vessels:? No retroperitoneal or mesenteric adenopathy by size criteri a.? Inferior vena cava is normal in morphology.? ? Miscellaneous:? No ventral hernias.? ? ? PELVIS:? Genitourinary:? Bladder wall thickness is normal.? ? Miscellaneous:? No inguinal adenopathy.? There is a small fat containing left inguinal hernia.? No ventral hernias.? ? Bones:? No suspicious bony lesions.? No vertebral body compression fractures.? ? ? IMPRESSION:? ? 1. No aortic dissection, aneurysmal dilatation, or aortic thrombus. ? 2. No acute intra-abdominal findings.? Extensive colonic diverticulosis.? No acute diverticulitis.? ? 3. Normal appendix. ? 4. Questionable focal consolidation versus nodule at the lingular base.? Three- month follow-up chest CT recommended to ensure resolution or stability of this finding. ? Dictated by: Nano Mcpherson M.D. on 01/22/2022 at 10:00? ?? ECG Data Interpretation: Atrial fibrillation at a rate of [address] T wave abnormality MDM Narrative Medical decision making narrative: 81-year-old gentleman presents with 3 episodes of very cardiac sounding chest pain. Today's episode was approximately 5 hours and is resolved on time of arrival in the emergency department. He does have a history of chronic atrial fibrillation and had a rapid rate on arrival. It has responded nicely to 3 doses of IV metoprolol and is down in the mid 70s. Initial troponin is positive at 0.718. ProBNP is elevated as well. Clinically he does not have overwhelming signs of congestive heart failure. With his complaints of squeezing tearing type pain from his umbilicus to his clavicles concern for dissection is entertained. He did have initially asymmetric blood pressure readings. CT angiogram is currently pending. Will wait until that is confirmed negative prior to considering adding additional anticoagulants such as heparin. He currently is on Pradaxa. Of note he does have acute chronic kidney injury with a GFR just below 30. No evidence of dissection or aortic aneurysm. Troponin has increased from 0.7- 1.0. Will begin heparin. Patient remains hemodynamically stable but reports intermittent episodes of heaviness and indigestion type feeling over the last hour. Blood pressure remains significantly elevated. Will begin nitroglycerin drip for the pain and blood pressure management. Will also add 25 mg of oral metoprolol.. Will begin looking for critical care/step-down bed in a hospital with cardiac catheterization and inpatient cardiology consultation immediately available. Patient is notified of findings. 130 pm Care is reviewed with DR Sosa at [facility]. Accepts transfer when bed available. Will need to go to medicine service. 4pm Spoke with Keya Tyson. Cardiology willing to consult. Spoke with Dr Emanuel López admitting hospitalist. [address] [place] [address], room # C901 Nurse for report please call [phone] plan is reviewed with patient. He remains quite comfortable at this time. Pain-free, rate controlled chronic AFib blood pressures in the 120s to 130s. Troponin continues to increase and is currently at 3.85. Safe for ALS transfer to [facility]. Critical Care Time Critical Care Time Critical Care Time: Yes Total Critical Care Time: 53 Attestation: Critical care time is separate from other billable procedures. There is a high probability of a significant, sudden or life-threatening deterioration that requires my full and direct attention, intervention and personal management. This critical care time includes consultation with family and other consulting doctors, review of records, and interpretation of data from labs, EKGs and imaging as well as managements of chest pain with wide differential diagnosis including multiple life-threatening etiologies, acute heparin management and chest pain. Discharge Plan Departure Patient Disposition: [facility] Clinical Impression: Acute non-ST elevation myocardial infarction (NSTEMI), Acute CHF, [id number] kidney injury, Atrial fibrillation with RVR Prescriptions: No Action ALLOPURINOL 500 mg PO Q DAY PRN (Reason: kidney ) Qty: 0 hydrochlorothiazide 12.5 MG capsule 12.5 mg PO QDAY PRN (Reason: Edema) Qty: 0 colchicine 0.6 MG tablet 0.6 mg PO QDAY PRN (Reason: (Drug) Ingestion) Qty: 0 hydrochlorothiazide 50 mg tablet 50 mg PO DAILY PRN (Reason: Edema) indomethacin 25 mg capsule 25 mg PO BID PRN (Reason: pain (scale score 4-6)) Qty: 10 0RF Rx Instructions: administer with food or milk Referrals: Baldo Ortega MD [Primary Care Provider] -
[2022-01-22 07:40] LABS: Add Manual Diff / Slide Review NO; Basophils Absolute Auto 100 /uL (0-100); Basophils Percent Auto 0.7 % (0-2); Eosinophils Absolute Auto 300 /uL (0-450); Eosinophils Percent Auto 3.7 % (2-4); Hematocrit 42.5 % (41-53); Hemoglobin 14.2 g/dL (13.5-17.5); Lymphocytes Absolute Auto 1100 /uL (1100-4500); Lymphocytes Percent Auto 12.5 % (25-40); Mean Corpuscular HGB Conc 33.4 % (30-36); Mean Corpuscular Hemoglobin 28.5 PG (26-34); Mean Corpuscular Volume 85.6 fL (80-100); Monocytes Absolute Auto 500 /uL (0-900); Monocytes Percent Auto 6.3 % (3-14); Neutrophils Absolute Auto 6600 /uL (1500-7000); Neutrophils Percent Auto 76.8 % (50-75); Platelet Count 177 X10^3/uL (150-400); Red Blood Cell Count 4.97 X10^6/uL (4.5-5.9); Red Cell Distribution Width 16.2 % (11.6-14.8); White Blood Cell Count 8.6 X10^3/uL (4.5-11.0)
--- NOTE | 2022-01-22 07:44 | DI.CT.S_ITS ---
PROCEDURE: CT HEAD/BRAIN WO CON INDICATIONS: Left arm weakness for 48 hrs TECHNIQUE: Noncontrast 4.5 mm thick angled axial sections acquired from the foramen magnum to the vertex, with coronal and sagittal reformats. For radiation dose reduction, the following was used: automated exposure control, adjustment of mA and/or kV according to patient size. COMPARISON: [facility], CT, HEAD WITHOUT CONTRAST, 03/07/2016, 15:14. FINDINGS: Image quality: Excellent. CSF spaces: Basal cisterns are patent. No extra-axial fluid collections. The ventricles are symmetric in size and shape. Brain: No intracranial bleeds or masses. There is cerebral volume loss for age, with resultant ventricular and sulcal prominence. There are periventricular and deep white matter chronic small vessel ischemic changes. There is intracranial internal carotid artery atherosclerosis. Skull and face: Calvarium and visualized facial bones appear intact, without suspicious lesions. Sinuses: Visualized sinuses and mastoids are clear. IMPRESSION: Unremarkable intracranial study, without an imaging explanation found for the patient's presenting history. If there is strong clinical suspicion for an acute stroke, please consider a brain MRI for further evaluation, as it is more sensitive (assuming that there is no contraindication to MRI). Dictated by: Enrico Warner M.D. on 01/22/2022 at 7:53 Approved by: Enrico Warner M.D. on 01/22/2022 at 7:54
--- NOTE | 2022-01-22 07:44 | DI.CT.S_ITS ---
PROCEDURE: CT ANGIO CHEST ABDOMEN PELVIS INDICATIONS: ? dissection (pain and asym BP) TECHNIQUE: Precontrast 5 mm thick sections acquired from the lung apices to the iliac crests. After the administration of intravenous contrast, 2.5 mm thick sections again acquired from the lung apices to the iliac crests. Maximum intensity projection (MIP) oblique sagittal and coronal reformats were then acquired. For radiation dose reduction, the following was used: automated exposure control. COMPARISON: None. FINDINGS: Image quality: Excellent. AORTA: The ascending thoracic aorta demonstrates normal course and caliber. Moderate atheromatous plaquing calcification is present within the thoracic aortic arch. Scattered atheromatous calcification and plaque is present within the descending thoracic aorta. Scattered atheromatous calcifications are present throughout the abdominal aorta. No aneurysmal dilatation. No mural hematoma or thrombus. No periaortic fat stranding or free fluid. CHEST: Lungs and pleura: No acute airspace opacities. There is mild atelectasis at the bilateral lung bases. There is questionable consolidation versus a small pulmonary nodule at the lingular base which measures 1.1 x1.0 cm in diameter (series 9/image 318 and series 10/image 33). No pleural effusions or pneumothorax. Central and peripheral airways are patent and normal in caliber. Mediastinum: Heart size is normal. No pericardial effusion. No mediastinal or hilar adenopathy by size criteria. Central pulmonary arteries are normal in size. Esophagus is normal in caliber. No hiatal hernias. Bones and chest wall: No axillary adenopathy by size criteria. Thyroid gland is unremarkable. No suspicious bony lesions. No vertebral body compression fractures. ABDOMEN: Vasculature: The celiac axis is widely patent. A moderate stenosis is present at the origin of the SMA. There are likely high-grade stenoses at the origins of the bilateral main renal arteries. There is a patent right accessory renal artery. The RASHEL is patent. Solid organs: Liver is normal in size and enhancement. Gallbladder is surgically absent . Biliary system is non dilated. Pancreas enhances normally. Spleen is normal in size and enhancement. No adrenal nodules. Both kidneys are normal in size and enhancement, without hydronephrosis. Peritoneum and bowel: No free fluid or air. Bowel loops are normal in caliber and wall thickness. The appendix is thin walled and gas filled. There are innumerable colonic diverticula. No evidence for diverticulitis. Nodes and vessels: No retroperitoneal or mesenteric adenopathy by size criteria. Inferior vena cava is normal in morphology. Miscellaneous: No ventral hernias. PELVIS: Genitourinary: Bladder wall thickness is normal. Miscellaneous: No inguinal adenopathy. There is a small fat containing left inguinal hernia. No ventral hernias. Bones: No suspicious bony lesions. No vertebral body compression fractures. IMPRESSION: 1. No aortic dissection, aneurysmal dilatation, or aortic thrombus. 2. No acute intra-abdominal findings. Extensive colonic diverticulosis. No acute diverticulitis. 3. Normal appendix. 4. Questionable focal consolidation versus nodule at the lingular base. Three-month follow-up chest CT recommended to ensure resolution or stability of this finding. Dictated by: Nano Mcpherson M.D. on 01/22/2022 at 10:00 Approved by: Nano Mcpherson M.D. on 01/22/2022 at 10:13
[2022-01-22 08:09] LABS: Alanine Aminotransferase 14 IU/L (<50); Albumin 4.3 g/dL (3.5-5.0); Albumin Globulin Ratio 1.3 (1.0-2.8); Alkaline Phosphatase 85 U/L (38-126); Aspartate Aminotransferase 32 IU/L (17-59); BUN Creatinine Ratio 28.7 (6-22); Bilirubin Total 0.8 mg/dL (0.2-1.3); Blood Urea Nitrogen 84 mg/dL (9-20); Calcium 9.2 mg/dL (8.4-10.2); Carbon Dioxide 28 mmol/L (22-32); Chloride 104 mmol/L (98-107); Creatine Kinase 121 U/L (55-170); Estimated Glomerular Filt Rate 21 mL/min (>60); Globulin 3.3 g/dL (1.7-4.1); Glucose 178 mg/dL (80-110); HEMOLYSIS 20 (0-50); Lipase 86 U/L (23-300); Magnesium 1.5 mg/dL (1.6-2.3); Potassium 4.4 mmol/L (3.4-5.1); Sodium 142 mmol/L (137-145); Total Protein 7.6 g/dL (6.3-8.2)
[2022-01-22] MEDS: METOPROLOL TARTRATE 5 MG/5 ML INJ IV ×3 (08:09→08:20)
[2022-01-22 08:18] LABS: NT-proBNP (BNP-Adult 18+) 6160 pg/mL (<450)
[2022-01-22 08:24] LABS: CKMB % Relative Index 4.4 % (1.5-5.0); Creatine Kinase MB 5.34 ng/mL (<2.37)
[2022-01-22 08:42] LABS: Troponin I 0.718 ng/mL (0.01-0.034)
[2022-01-22 10:06] LABS: COVID19 -Nasal RAPID Negative (Negative)
[2022-01-22] MEDS: HEPARIN DRIP 25,000 UNIT/500 ML IV.SOLN 20 UNIT IV (12:04)
[2022-01-22] MEDS: METOPROLOL IR 25 MG TABLET PO (12:05)
[2022-01-22] MEDS: HEPARIN 5,000 UNIT/ML VIAL 5000 UNIT IV (12:05)
[2022-01-22] MEDS: NITROGLYCERIN 50 MG/250 ML INFUS..BTL IV (12:36)
--- NOTE | 2022-01-22 14:13 | PC.NURSE ---
Patient is on the waitlist at [facility]. and Malay refused waitlist.
[2022-01-22 14:15] LABS: PTT Partial Thromboplastin Tim 35 SECONDS (26.4-36.2)
[2022-01-22] MEDS: ACETAMINOPHEN 325 MG TABLET 975 MG PO (15:35)
== END 2022-01-22 17:45 | disposition short-term general hospital (02) ==
PROVIDERS: Emergency Provider Emergency Medicine; Family Provider Internal Medicine; PCP Internal Medicine
DX: I21.4 Non-ST elevation (NSTEMI) myocardial infarction (principal); I50.9 Heart failure, unspecified; N17.9 Acute kidney failure, unspecified; I48.91 Unspecified atrial fibrillation; R06.02 Shortness of breath; Z20.822 Contact with and (suspected) exposure to COVID-19; R53.1 Weakness
CPT/HCPCS: 36415; 70450; 71275; 74174; 80053; 81003; 82550; 82553; 83690; 83735; 83880; 84484; 85025; 85730; 87635; 93005; 96365; 96366; 96368; 96375; 99285; 99291; 99292; C9803; J1644

== ENCOUNTER 2022-03-18 08:30 | Outpatient (RCR) | payer MEDICARE, OTHER, SELFPAY | END 2022-03-18 10:30 | LOC: CAR 08:30 | PROVIDERS: Family Provider Internal Medicine; PCP Internal Medicine; Referring Provider Family Medicine; Visit Provider Family Medicine | DX: I25.2 Old myocardial infarction (principal) | CPT/HCPCS: 93798 ==

== ENCOUNTER → 2022-04-17 | Outpatient (CLI) | payer MEDICARE, OTHER, SELFPAY ==
[2022-04-17 09:53] LABS: Add Manual Diff / Slide Review NO; Basophils Absolute Auto 100 /uL (0-100); Basophils Percent Auto 0.7 % (0-2); Eosinophils Absolute Auto 500 /uL (0-450); Hematocrit 37.6 % (41-53); Hemoglobin 12.7 g/dL (13.5-17.5); Lymphocytes Absolute Auto 1000 /uL (1100-4500); Lymphocytes Percent Auto 11.2 % (25-40); Mean Corpuscular HGB Conc 33.9 % (30-36); Mean Corpuscular Hemoglobin 29.5 PG (26-34); Mean Corpuscular Volume 87.1 fL (80-100); Monocytes Absolute Auto 600 /uL (0-900); Monocytes Percent Auto 6.6 % (3-14); Neutrophils Absolute Auto 6500 /uL (1500-7000); Neutrophils Percent Auto 75.5 % (50-75); Platelet Count 150 X10^3/uL (150-400); Red Blood Cell Count 4.32 X10^6/uL (4.5-5.9); Red Cell Distribution Width 17.2 % (11.6-14.8); White Blood Cell Count 8.6 X10^3/uL (4.5-11.0)
[2022-04-17 10:40] LABS: COVID19 -Nasal RAPID Negative (Negative)
[2022-04-17 10:40] LABS: BUN Creatinine Ratio 30.7 (6-22); Blood Urea Nitrogen 87 mg/dL (9-20); Calcium 9.1 mg/dL (8.4-10.2); Carbon Dioxide 25 mmol/L (22-32); Chloride 108 mmol/L (98-107); Cholesterol 115 mg/dL (140-199); Estimated Glomerular Filt Rate 21 mL/min (>60); Glucose 131 mg/dL (80-110); HDL Cholesterol 31 mg/dL (40-60); HEMOLYSIS < 15 (0-50); LDL Cholesterol Calculated 42 mg/dL (<100); Sodium 144 mmol/L (137-145); Triglycerides 211 mg/dL (35-150)
--- NOTE | 2022-04-17 18:12 | DI.NM.S_ITS ---
DATE OF SERVICE: 04/17/2022 PROCEDURE: Exercise perfusion study. INDICATION: Atrial fibrillation, coronary artery disease, hypertension, hyperlipidemia and dyspnea. RADIOPHARMACEUTICAL: 26.0 millicurie technetium-99m Myoview IV was injected at stress and 11.4 millicurie technetium-99m Myoview IV was injected at rest. CARDIAC STRESS: The patient underwent initially exercise stress test on Tenzin protocol, however, he was only able to walk for 4 minutes and 08 seconds. He had fatigue and shortness of breath. He was not able to walk on treadmill. In fact, speed was adjusted manually after 2 minutes and 30 seconds into the exercise protocol. The patient achieved maximum heart rate of 110, which was 80 percent of the target heart rate. Exercise stress test was discontinued. It was converted to pharmacological perfusion study. The patient received IV Lexiscan, as per standard protocol. During exercise, patient had fatigue and shortness of breath and some chest discomfort, which patient was unable to describe. During Lexiscan, the patient had moderate dyspnea and chest pain, which got resolved in recovery. Overall baseline rhythm AFib with controlled ventricular rate and nonspecific ST-T changes. During exercise as well as during Lexiscan, there were no new convincing ischemic changes. Rare PVCs. No sustained ventricular tachycardia. RAW DATA: There is increased subdiaphragmatic activity. GATED STUDY: Resting LV ejection fraction 53 and stress LV ejection fraction 65 percent without any significant wall motion abnormalities. Resting end- diastolic volume 89 mL. TID ratio 0.90, which is within normal limits. Lung/heart ratio 0.43, which is within normal limits. MYOCARDIAL PERFUSION SCAN: Stress supine, resting supine and stress prone images were compared to each other. Stress supine and resting supine images revealed small size, mildly decreased perfusion of basal to mid inferior wall, which got resolved during stress prone images, suggestive of diaphragmatic tissue attenuation artifact. CONCLUSION: I will call this study a normal myocardial perfusion study with evidence of diaphragmatic tissue attenuation artifact, which got resolved during stress prone images. Diminished exercise tolerance. Functional aerobic impairment positive 36 percent. The patient achieved 4.6 metabolic equivalents of workload. 80 percent of target heart rate, hence exercise stress test was converted to a pharmacological perfusion study. Some chest discomfort, shortness of breath and fatigue on exertion. However, as perfusion scan is concerned, it is a normal myocardial perfusion along with preserved left ventricular function, hence, overall low-risk scan. Elder, Patten - RICKEY/homero/shiraz doc#: [id number]/job#: [id number] dd: 04/17/2022 16:59:00 dt: 04/17/2022 17:35:00 DICTATING MD/COPIES TO: Elena Guzman MD COPIES MNE: ALEXANDRU;
== END ==
LOC: NUCM 08:38
PROVIDERS: Family Provider Internal Medicine; PCP Internal Medicine; Referring Provider Internal Medicine Cardiovascular Disease; Visit Provider Internal Medicine Cardiovascular Disease
DX: R06.00 Dyspnea, unspecified (principal); I12.9 Hypertensive chronic kidney disease with stage 1 through stage 4 chronic kidney disease, or unspecified chronic kidney disease; N18.4 Chronic kidney disease, stage 4 (severe); I25.10 Atherosclerotic heart disease of native coronary artery without angina pectoris; I48.91 Unspecified atrial fibrillation; E78.5 Hyperlipidemia, unspecified; Z20.822 Contact with and (suspected) exposure to COVID-19; Z79.01 Long term (current) use of anticoagulants
CPT/HCPCS: 36415; 78452; 80048; 80061; 85025; 87635; 93017; A9502; J2785

== ENCOUNTER → 2023-05-12 08:57 | Outpatient (CLI) | payer MEDICARE, OTHER, SELFPAY ==
[2023-05-12 09:49] LABS: Add Manual Diff / Slide Review NO; Basophils Absolute Auto 100 /uL (0-100); Basophils Percent Auto 0.8 % (0-2); Eosinophils Absolute Auto 500 /uL (0-450); Eosinophils Percent Auto 7.8 % (2-4); Hematocrit 38.1 % (41-53); Lymphocytes Absolute Auto 1000 /uL (1100-4500); Lymphocytes Percent Auto 14.2 % (25-40); Mean Corpuscular Hemoglobin 30.6 PG (26-34); Mean Corpuscular Volume 90.1 fL (80-100); Monocytes Absolute Auto 600 /uL (0-900); Monocytes Percent Auto 8.1 % (3-14); Neutrophils Absolute Auto 4800 /uL (1500-7000); Neutrophils Percent Auto 69.1 % (50-75); Platelet Count 153 X10^3/uL (150-400); Red Blood Cell Count 4.23 X10^6/uL (4.5-5.9); Red Cell Distribution Width 15.9 % (11.6-14.8)
[2023-05-12 10:11] LABS: BUN Creatinine Ratio 28.7 (6-22); Blood Urea Nitrogen 80 mg/dL (9-20); Calcium 9.8 mg/dL (8.4-10.2); Carbon Dioxide 23 mmol/L (22-32); Chloride 108 mmol/L (98-107); Cholesterol 137 mg/dL (140-199); Estimated Glomerular Filt Rate 22 mL/min (>60); Glucose 130 mg/dL (80-110); HDL Cholesterol 26 mg/dL (40-60); HEMOLYSIS < 15 (0-50); LDL Cholesterol Calculated 51 mg/dL (<100); Sodium 141 mmol/L (137-145); Triglycerides 302 mg/dL (35-150)
== END ==
PROVIDERS: Family Provider Internal Medicine; PCP Internal Medicine; Referring Provider Internal Medicine Cardiovascular Disease; Visit Provider Internal Medicine Cardiovascular Disease
DX: E78.5 Hyperlipidemia, unspecified (principal); N18.4 Chronic kidney disease, stage 4 (severe)
CPT/HCPCS: 36415; 80048; 80061; 85025

== ENCOUNTER 2024-12-16 09:53 | Inpatient (IN) | payer MEDICARE, OTHER, SELFPAY ==
[2024-12-16] VITALS (54 sets, daily range): BP systolic 98–167; BP diastolic 53–114; PULSE 42–131; RESP 14–37; TEMP 36.9–38.2; O2SAT 96–99; BMI 26.9
--- NOTE | 2024-12-16 10:07 | EKG_ITS ---
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
--- NOTE | 2024-12-16 10:10 | ED_ITS ---
HPI - Neuro Symptoms/Deficit General Chief Complaint: Neuro Symptoms/Deficit Stated Complaint: Stroke Protocol , sent from Dr Vera Seen by Provider: 12/16/24 09:58 Source: patient Mode of arrival: Ambulatory History of Present Illness HPI Narrative: Patient here for left visual field deficit at 11 o'clock position in each eye. No headache. Onset midnight/12:00 a.m. today. 10 hours ago. Patient has had this occur 1 or 2 times a year for the past 10 years. Denies any headache. No numbness tingling weakness no facial droop no slurred speech. Patient does have history of atrial fibrillation but stopped taking his blood pressure medication and does not take blood thinners. Primary care is Dr. Paris On Anticoagulants: No Related Data Home Medications Medication Instructions Recorded Confirmed ALLOPURINOL 100 mg PO Q DAY PRN kidney ##0 11/01/06 12/16/24 atorvastatin 80 mg tablet 80 mg PO DAILY 12/16/24 12/16/24 isosorbide mononitrate 30 mg 30 mg PO DAILY 12/16/24 12/16/24 tablet,extended release 24 hr loperamide 2 mg capsule 2 mg PO DAILY 12/16/24 12/16/24 Allergies Allergy/AdvReac Type Severity Reaction Status Date / Time latex [LATEX] Allergy Severe Rash Verified 12/16/24 16:46 Penicillins [PENICILLINS] Allergy Severe swelling Verified 12/16/24 16:46 lymph nodes Review of Systems Review of Systems Narrative: GENERAL: Negative chills, fatigue, malaise, fever, sweats. HEENT: Negative sinus pain, ear pain, sore throat RESPIRATORY: Negative dyspnea, cough CARDIOVASCULAR: Negative chest pain, palpitations GASTROINTESTINAL: Negative vomiting, nausea, abdominal pain : Negative dysuria, frequency, hematuria MUSCULOSKELETAL: Negative muscle or bony pain SKIN: Negative rash, skin lesions NEUROLOGIC: Negative weakness, numbness, positive vision loss ROS Unobtainable: All systems reviewed & are unremarkable except as noted in HPI and below Hematologic/Lymphatic On Anticoagulants: No Patient History Medical History (Updated 12/16/24 @ 10:16 by Gerardo Frias MD) Chronic diarrhea Peripheral neuropathy Chronic atrial fibrillation Hypertension Social History household members: spouse and none Smoking Status: Current every day smoker alcohol intake: current tobacco type: cigarettes alcohol intake frequency: 0-2 drinks per day Exam Narrative Exam Narrative: GENERAL: in no distress, not toxic not dyspneic HEAD: Normocephalic. EYES: Pupils equal round ENT: Mucous membranes moist. NECK: Trachea midline. CARDIOVASCULAR: Regular rate and rhythm RESPIRATORY: Clear to auscultation. Breath sounds equal bilaterally. No wheezes, rales, or rhonchi. GASTROINTESTINAL: Abdomen soft, non-tender EXTREMITIES: No gross deformities. BACK: No flank tenderness. NEURO: AOx4. Clear speech no facial droop light touch intact bilateral face and hands. Strong equal landscape photographer. Negative pronator drift. Elevate each leg without drift. However patient unable to see 11 o'clock position in each eye visual field. Individual eye was isolated for this exam SKIN: Warm and dry PSYCH: Not anxious, is cooperative Initial Vital Signs Initial Vital Signs: Vital Signs Temperature 98.9 F 12/16/24 09:55 Pulse Rate 110 H 12/16/24 09:55 Respiratory Rate 14 12/16/24 09:55 Blood Pressure 144/101 H 12/16/24 09:55 Pulse Oximetry 99 12/16/24 09:55 Oxygen Delivery Method Room Air 12/16/24 09:55 Scores NIH Stroke Scale Level of Conciousness: Alert, keenly responsive Ask month/age: Answers both questions correctly. Open/close eyes, close hand: Performs both tasks correctly Best gaze horizontal: Normal Visual baker: Partial hemianopia Facial palsy: Normal symetrical movement Left arm drift: No drift for full 10 sec Right arm drift: No drift for full 10 sec Left leg drift: No drift for full 5 sec Right leg drift: No drift for full 5 sec Limb ataxia: Absent Sensory on face/arms/legs: Normal, no sensory loss Best language: No aphasia, normal Dysarthria: Normal Extinction or inattention: No abnormality Total NIH Stroke scale score: 1 Course Orders Ordered: Discontinued Medications Acetaminophen (Acetaminophen 325 Mg Tablet) 650 mg PO Q6H PRN PRN Reason: Fever/Mild Pain (1-3) Last Admin: 12/17/24 05:43 Dose: 650 mg Documented By: Admin: 12/16/24 18:11 Dose: 650 mg Documented By: Al Hydrox/Mg Hydrox/Simethicone (Mag Hydrox/Alum/Simeth 30 Ml Udc) 30 ml PO Q6HR PRN PRN Reason: Dyspepsia Apixaban (Apixaban 5 Mg Tablet) 2.5 mg PO BID [facility] Last Admin: 12/17/24 09:20 Dose: 2.5 mg Documented By: Admin: 12/16/24 20:22 Dose: 2.5 mg Documented By: SADIE Aspirin (Aspirin Ec 325 Mg Tablet) 325 mg PO DAILY ONE Stop: 12/16/24 14:13 Last Admin: 12/16/24 14:30 Dose: 325 mg Documented By: Atorvastatin Calcium (Atorvastatin 20 Mg Tablet) 80 mg PO DAILY [facility] Last Admin: 12/17/24 09:20 Dose: 80 mg Documented By: Admin: 12/16/24 14:30 Dose: 80 mg Documented By: Calcium Carbonate (Calcium Carbonate 500 Mg Tab) 1,000 mg PO Q4HR PRN PRN Reason: Dyspepsia Diphenhydramine HCl (Diphenhydramine 25 Mg Tablet) 25 mg PO BEDTIME PRN PRN Reason: Insomnia Last Admin: 12/16/24 23:45 Dose: 25 mg Documented By: SMOOTH Docusate Sodium (Docusate 100 Mg Capsule) 100 mg PO BID [facility] Last Admin: 12/17/24 10:08 Dose: Not Given Documented By: Admin: 12/17/24 00:52 Dose: Not Given Documented By: SADIE Enoxaparin Sodium (Enoxaparin 40 Mg/0.4 Ml Syringe) 40 mg SUBCUT DAILY [facility] Last Admin: 12/16/24 14:32 Dose: 40 mg Documented By: Enoxaparin Sodium (Enoxaparin 30 Mg/0.3 Ml Syringe) 30 mg SUBCUT DAILY [facility] Sodium Chloride (Normal Saline 0.9%) 500 mls @ 1,000 mls/hr IV BOLUS ONE Stop: 12/16/24 10:47 Last Infusion: 12/16/24 11:16 Dose: Infused Documented By: Admin: 12/16/24 10:39 Dose: 1,000 mls/hr Documented By: ROSE Diltiazem HCl 125 mg/ Sodium (Chloride) 125 mls @ 5 mls/hr IV TITRATE [facility]; Protocol Last Titration: 12/16/24 19:00 Dose: 0 mg/hr, 0 mls/hr Documented By: Titration: 12/16/24 18:32 Dose: 10 mg/hr, 10 mls/hr Documented By: Titration: 12/16/24 13:27 Dose: 12 mg/hr, 12 mls/hr Documented By: Titration: 12/16/24 11:47 Dose: 10 mg/hr, 10 mls/hr Documented By: Titration: 12/16/24 11:36 Dose: 5 mg/hr, 5 mls/hr Documented By: Titration: 12/16/24 11:17 Dose: 0 mg/hr, 0 mls/hr Documented By: Admin: 12/16/24 10:39 Dose: 5 mg/hr, 5 mls/hr Documented By: MPO Dextrose (D10w) 100 mls @ 999 mls/hr IV PRN PRN PRN Reason: Hypoglycemia Insulin Human Lispro (Insulin Lispro 100 Unit/Ml 3ml Vial) 0 unit SUBCUT ACHS [facility]; Protocol Last Admin: 12/17/24 13:11 Dose: Not Given Documented By: Admin: 12/17/24 09:21 Dose: 1 unit Documented By: GEOVANNI Co-signed By: GISSELLE Admin: 12/17/24 00:52 Dose: Not Given Documented By: Admin: 12/16/24 17:50 Dose: 1 unit Documented By: Co-signed By: GISSELLE Isosorbide Mononitrate (Isosorbide Mononitrate Er 30 Mg Tablet) 30 mg PO DAILY [facility] Last Admin: 12/17/24 09:20 Dose: 30 mg Documented By: GEOVANNI Metoprolol Succinate (Metoprolol Er 50 Mg Tablet) 50 mg PO NOW ONE Stop: 12/16/24 16:45 Last Admin: 12/16/24 16:56 Dose: 50 mg Documented By: Naloxone HCl (Naloxone 0.4 Mg/Ml Vial) 0.2 mg IV Q2MIN PRN PRN Reason: Opiate Reversal Ondansetron HCl (Ondansetron 4 Mg/2 Ml Inj) 4 mg IV Q8HR PRN PRN Reason: Nausea And Vomiting Ondansetron HCl (Ondansetron 4 Mg Odt) 4 mg PO Q8HR PRN PRN Reason: Nausea And Vomiting Vital Signs Vital signs: Vital Signs - 8 hr 12/16/24 09:55 12/16/24 09:59 12/16/24 09:59 Temperature 98.9 F Pulse Rate 110 H 116 H Respiratory Rate 14 Blood Pressure 144/101 H 144/101 H Pulse Oximetry 99 98 Oxygen Delivery Method Room Air 12/16/24 10:00 12/16/24 10:02 12/16/24 10:02 Temperature Pulse Rate 112 H 131 H Respiratory Rate 14 Blood Pressure 167/105 H Pulse Oximetry 98 99 Oxygen Delivery Method 12/16/24 10:30 12/16/24 10:30 12/16/24 10:39 Temperature Pulse Rate 103 H 112 H Respiratory Rate 17 Blood Pressure 164/102 H 164/102 H Pulse Oximetry 98 Oxygen Delivery Method 12/16/24 10:45 12/16/24 10:45 12/16/24 10:50 Temperature Pulse Rate 113 H Respiratory Rate 22 Blood Pressure 165/103 H 145/84 H Pulse Oximetry 99 Oxygen Delivery Method 12/16/24 10:50 12/16/24 10:55 12/16/24 10:55 Temperature Pulse Rate 104 H 99 H Respiratory Rate 19 18 Blood Pressure 155/76 H Pulse Oximetry 98 99 Oxygen Delivery Method 12/16/24 11:00 12/16/24 11:00 12/16/24 11:05 Temperature Pulse Rate 101 H 99 H Respiratory Rate 18 21 Blood Pressure 146/78 H Pulse Oximetry 98 98 Oxygen Delivery Method 12/16/24 11:05 12/16/24 11:10 12/16/24 11:10 Temperature Pulse Rate 100 H Respiratory Rate 21 Blood Pressure 152/92 H 159/95 H Pulse Oximetry 98 Oxygen Delivery Method 12/16/24 11:15 12/16/24 11:15 12/16/24 11:35 Temperature Pulse Rate 99 H 120 H Respiratory Rate 19 19 Blood Pressure 151/99 H Pulse Oximetry 98 99 Oxygen Delivery Method 12/16/24 11:36 12/16/24 11:36 12/16/24 11:40 Temperature Pulse Rate 121 H 112 H Respiratory Rate 21 21 Blood Pressure 149/114 H Pulse Oximetry 98 98 Oxygen Delivery Method 12/16/24 11:40 12/16/24 11:45 12/16/24 11:45 Temperature Pulse Rate 100 H Respiratory Rate 25 H Blood Pressure 163/91 H 158/84 H Pulse Oximetry 98 Oxygen Delivery Method 12/16/24 11:47 12/16/24 11:47 12/16/24 11:50 Temperature Pulse Rate 110 H Respiratory Rate 28 H Blood Pressure 156/66 H 148/84 H Pulse Oximetry 98 Oxygen Delivery Method 12/16/24 11:50 12/16/24 11:55 12/16/24 11:55 Temperature Pulse Rate 95 H 104 H Respiratory Rate 25 H 19 Blood Pressure 148/88 H Pulse Oximetry 98 98 Oxygen Delivery Method MDM - Neuro Symptoms/Deficit Lab Data 12/17/24 04:13 12/17/24 04:13 Labs: Lab Results 12/16/24 Range/Units 10:05 WBC 10.1 (4.5-11.0) X10^3/uL RBC 4.72 (4.5-5.9) X10^6/uL Hgb 14.2 (13.5-17.5) g/dL Hct 42.9 (41-53) % MCV 90.9 (80-100) fL MCH 30.0 (26-34) PG MCHC 33.0 (30-36) % RDW 16.6 H (11.6-14.8) % Plt Count 168 (150-400) X10^3/uL Neut % (Auto) 76.8 H (50-75) % Lymph % (Auto) 9.4 L (25-40) % [place] % (Auto) 6.5 (3-14) % Eos % (Auto) 6.5 H (2-4) % Baso % (Auto) 0.8 (0-2) % Neut # (Auto) 7800 H (0689-6667) /uL Lymph # (Auto) 900 L (7013-1015) /uL [place] # (Auto) 700 (0-900) /uL Eos # (Auto) 700 H (0-450) /uL Baso # (Auto) 100 (0-100) /uL PT 11.7 (9.4-12.5) SECONDS INR 1.0 (0.9-1.3) APTT 33 (25.1-36.5) SECONDS Sodium 140 (137-145) mmol/L Potassium 5.0 (3.4-5.1) mmol/L Chloride 107 (98-107) mmol/L Carbon Dioxide 20 L (22-32) mmol/L BUN 74 H (9-20) mg/dL Creatinine 3.36 H (0.66-1.25) mg/dL Estimated GFR 17 L (>60) mL/min BUN/Creatinine Ratio 22.0 (6-22) Glucose 161 H (70-99) mg/dL Calcium 9.6 (8.4-10.2) mg/dL Total Bilirubin 1.4 H (0.2-1.3) mg/dL AST 19 (17-59) IU/L ALT 20 (<50) IU/L Alkaline Phosphatase 94 (38-126) U/L Total Creatine Kinase 90 (55-170) U/L Troponin I 0.028 (0.01-0.034) ng/mL Total Protein 7.5 (6.3-8.2) g/dL Albumin 4.7 (3.5-5.0) g/dL Globulin 2.8 (1.7-4.1) g/dL Albumin/Globulin Ratio 1.7 (1.0-2.8) Imaging Data CT scan - head: Radiologist's Impression: [address] [address] [address] Scan Report Signed Patient: Sandor Wong MR#: [id number] : 1940 Acct:[id number] Age/Sex: 84 / M Date of Service: 12/16/24 Loc: ED Accession Number: [id number] Procedure: CT head/brain wo con Ordering Provider: Gerardo Frias MD PROCEDURE: CT HEAD/BRAIN WO CON INDICATIONS: Visual loss TECHNIQUE: Noncontrast 4.5 mm thick angled axial sections acquired from the foramen magnum to the vertex, with coronal and sagittal reformats. For radiation dose reduction, the following was used: automated exposure control, adjustment of mA and/or kV according to patient size. COMPARISON: [facility], CT, CT HEAD/BRAIN WO CON, 01/22/2022, 8:28. FINDINGS: Image quality: Diagnostic. CSF spaces: Basal cisterns are patent. No extra-axial fluid collections. The ventricles are symmetric in size and shape. Brain: No intracranial bleeds or mass effect. There is cerebral volume loss, with resultant ventricular and sulcal prominence. There are periventricular and deep white matter chronic small vessel ischemic changes. There is intracranial internal carotid artery atherosclerosis. Skull and face: Calvarium and visualized facial bones appear intact, without suspicious lesions. Sinuses: Visualized sinuses and mastoids are clear. IMPRESSION: 1. No acute intracranial process. 2. Moderate atrophy and chronic microvascular ischemic changes. Dictated by: Naomi Schmidt M.D. on 12/16/2024 at 12:01 Approved by: Naomi Schmidt M.D. on 12/16/2024 at 12:03 [facility] Narrative Medical decision making narrative: Patient here for left visual field deficit at 11 o'clock position in each eye. No headache. Onset midnight/12:00 a.m. today. 10 hours ago. Patient has had this occur 1 or 2 times a year for the past 10 years. Denies any headache. No numbness tingling weakness no facial droop no slurred speech. Patient does have history of atrial fibrillation but stopped taking his blood pressure medication and does not take blood thinners. Primary care is Dr. Paris After history and exam, CT head CT angiogram head and neck CBC CMP EKG [facility] reviewed: No recent visit for this complaint Differential considered: Includes but not limited to TIA stroke AFib Lab Test results independently reviewed as above. Pertinent findings: Independently reviewed EKG atrial fibrillation rate 109 Imaging studies independently reviewed: CT head no acute finding Consultations: 12:16 p.m. spoke primary care and will admit, Dr. Paris, will talk to patient about anticoagulation, will need MRI and echocardiogram. Admit to ICU, patient's GFR is too low for CT angiogram Re-evaluations: 12:20 p.m.. Updated patient results and disposition plan. Agrees. Needs evaluation for possible stroke, MRI echocardiogram to be done as well. He will talk to his primary care regarding anticoagulation Discussion: Appropriate for admission for Melody ip rate control stroke evaluation and MRI echocardiogram. Patient is outside window for TNK, greater than 4-1/2 hours of onset. Diagnosis: Vision loss Stroke Core Measures Exclusion Criteria TPA in CVA: Symptom Onset >3 or 4.5 Hours Critical Care Time Critical Care Time Attestation: Critical Care Time 35 minutes: Critical care time is separate from other billable procedures. This critical care time includes consultation with family and other consulting doctors, review of records, and interpretation of data from labs, EKGs, imaging, etc. Discharge Plan Departure Patient Disposition: Admitted As Inpatient Clinical Impression: Transient cerebral ischemia Qualifiers: Transient cerebral ischemia type: unspecified Qualified Code(s): G45.9 - Transient cerebral ischemic attack, unspecified Atrial fibrillation Qualifiers: Atrial fibrillation type: unspecified Qualified Code(s): I48.91 - Unspecified atrial fibrillation Admit Date/Time: 12/16/24 12:19 Admit Provider: Jethro Paris
--- NOTE | 2024-12-16 10:16 | DI.CT.S_ITS ---
PROCEDURE: CT HEAD/BRAIN WO CON INDICATIONS: Visual loss TECHNIQUE: Noncontrast 4.5 mm thick angled axial sections acquired from the foramen magnum to the vertex, with coronal and sagittal reformats. For radiation dose reduction, the following was used: automated exposure control, adjustment of mA and/or kV according to patient size. COMPARISON: [facility], CT, CT HEAD/BRAIN WO CON, 01/22/2022, 8:28. FINDINGS: Image quality: Diagnostic. CSF spaces: Basal cisterns are patent. No extra-axial fluid collections. The ventricles are symmetric in size and shape. Brain: No intracranial bleeds or mass effect. There is cerebral volume loss, with resultant ventricular and sulcal prominence. There are periventricular and deep white matter chronic small vessel ischemic changes. There is intracranial internal carotid artery atherosclerosis. Skull and face: Calvarium and visualized facial bones appear intact, without suspicious lesions. Sinuses: Visualized sinuses and mastoids are clear. IMPRESSION: 1. No acute intracranial process. 2. Moderate atrophy and chronic microvascular ischemic changes. Dictated by: Naomi Schmidt M.D. on 12/16/2024 at 12:01 Approved by: Naomi Schmidt M.D. on 12/16/2024 at 12:03
--- NOTE | 2024-12-16 10:24 | PC.NURSE ---
Pt arrived to ED because he has been experiencing bilateral left visual field deficits since 2300 last night. Pt denies having any REESE & numbness/tingling. No facial droop, slurred speech or weakness observed. Hx of afib & HTN. Stopped taking HTN medication and is not currently on blood thinner. Ambulated with steady gait. A&Ox4.
[2024-12-16 10:32] LABS: Add Manual Diff / Slide Review NO; Basophils Absolute Auto 100 /uL (0-100); Basophils Percent Auto 0.8 % (0-2); Eosinophils Absolute Auto 700 /uL (0-450); Eosinophils Percent Auto 6.5 % (2-4); Hematocrit 42.9 % (41-53); Hemoglobin 14.2 g/dL (13.5-17.5); Lymphocytes Absolute Auto 900 /uL (1100-4500); Lymphocytes Percent Auto 9.4 % (25-40); Mean Corpuscular Volume 90.9 fL (80-100); Monocytes Absolute Auto 700 /uL (0-900); Monocytes Percent Auto 6.5 % (3-14); Neutrophils Absolute Auto 7800 /uL (1500-7000); Neutrophils Percent Auto 76.8 % (50-75); Platelet Count 168 X10^3/uL (150-400); Red Blood Cell Count 4.72 X10^6/uL (4.5-5.9); Red Cell Distribution Width 16.6 % (11.6-14.8); White Blood Cell Count 10.1 X10^3/uL (4.5-11.0)
[2024-12-16 10:34] LABS: Prothrombin Time 11.7 SECONDS (9.4-12.5)
[2024-12-16 10:37] LABS: PTT Partial Thromboplastin Tim 33 SECONDS (25.1-36.5)
[2024-12-16 10:39] LABS: Alanine Aminotransferase 20 IU/L (<50); Albumin 4.7 g/dL (3.5-5.0); Albumin Globulin Ratio 1.7 (1.0-2.8); Alkaline Phosphatase 94 U/L (38-126); Aspartate Aminotransferase 19 IU/L (17-59); Bilirubin Total 1.4 mg/dL (0.2-1.3); Blood Urea Nitrogen 74 mg/dL (9-20); Calcium 9.6 mg/dL (8.4-10.2); Carbon Dioxide 20 mmol/L (22-32); Chloride 107 mmol/L (98-107); Creatine Kinase 90 U/L (55-170); Estimated Glomerular Filt Rate 17 mL/min (>60); Globulin 2.8 g/dL (1.7-4.1); Glucose 161 mg/dL (70-99); HEMOLYSIS < 15 (0-50); Sodium 140 mmol/L (137-145); Total Protein 7.5 g/dL (6.3-8.2)
[2024-12-16] MEDS: SODIUM CHLORIDE 0.9% 500 ML 1000 ML IV (10:39)
[2024-12-16] MEDS: dilTIAZem 125 MG in SODIUM CHLORIDE 0.9% 100 ML IV (10:39)
[2024-12-16 10:51] LABS: Troponin I 0.028 ng/mL (0.01-0.034)
--- NOTE | 2024-12-16 12:03 | PC.NURSE ---
Dr Frias notified of pt VS. Verbal order to resume dilt drip at 10mg/hr.
--- NOTE | 2024-12-16 12:58 | DI.MRI.S_ITS ---
PROCEDURE: MR ANGIO HEAD WO CON INDICATIONS: Loss of peripheral vision TECHNIQUE: Noncontrast axial 3-D [id number] MR angiogram, with 3-dimensional maximum intensity projection (MIP) reformats of the internal carotid arteries and posterior circulation then performed. COMPARISON: [facility], CT, CT HEAD/BRAIN WO CON, 01/22/2022, 8:28. FINDINGS: Image quality: Excellent. Anterior circulation: Intracranial internal carotid arteries demonstrate normal size and intraluminal flow signal. The flow within the paired anterior cerebral arteries is normal and symmetric. The flow within the middle cerebral arteries is normal and symmetric. The anterior communicating artery is seen. No stenoses, occlusions, or aneurysms. Posterior circulation: Visualized portions of the vertebral arteries demonstrate normal caliber, and join to form a normal appearing basilar artery. The flow within the posterior cerebral arteries is normal and symmetric. No stenoses, occlusions, or aneurysms. IMPRESSION: No areas of hemodynamically significant stenosis, vascular occlusion or aneurysmal dilation within the anterior circulation. No areas of hemodynamically significant stenosis, vascular occlusion or aneurysmal dilation within the posterior circulation. Dictated by: Naomi Schmidt M.D. on 12/17/2024 at 11:57 Approved by: Naomi Schmidt M.D. on 12/17/2024 at 11:58
--- NOTE | 2024-12-16 12:58 | DI.ECHO.S_ITS ---
[facility] : : [address] : [place] : : [id number] : : Phone: [phone] Echocardiogram Report + + :Name: KRISTIN CERDA Study Date: 12/16/2024 Height: 71 in : :Hospital ReadingLocation: Weight: 193 lb : : Gender: Male BSA: 2.1 m2 : :: 1940 Age: 84 yrs BP: 142/63 mmHg: :Reason For Study: LOSS OF PERIPHERAL VISION : :Ordering Physician: PATRICIA, : :JENA Lam Performed By: Karyna Santos : :Referring: JENA GOMEZ : + + Interpretation Summary The left ventricle is normal in size and wall thickness. Left ventricular systolic function appears normal without focal wall motion abnormalities. The ejection fraction is estimated to be 55-60%. The right ventricle is normal size. Right ventricular systolic function is mildly reduced. The right ventricular systolic pressure is estimated to be at least 46 mmHg based on an estimated right atrial pressure of 8 mm Hg. The left atrium is moderately dilated. The right atrium is mild to moderately dilated. A patent foramen ovale is present. There is mild mitral regurgitation. There is mild aortic regurgitation. There is mild to moderate tricuspid regurgitation. The aortic root is normal size. Procedure: A two-dimensional transthoracic echocardiogram with color flow and Doppler was performed. The study quality was technically adequate. The patient had an echocardiogram, but there is no comparison study available. Comparison is made with the echocardiogram of 10/15/2006. The patient was in atrial fibrillation with heart rates between 75-95 bpm during the exam. Left Ventricle: The left ventricle is normal in size and wall thickness. Left ventricular systolic function appears normal without focal wall motion abnormalities. The ejection fraction is estimated to be 55-60%. Diastolic function could not be accurately assessed due to atrial fibrillation. Right Ventricle: The right ventricle is normal size. Right ventricular systolic function is mildly reduced. Atria: The left atrium is moderately dilated. The right atrium is mild to moderately dilated. A patent foramen ovale is present. Mitral Valve: The mitral valve leaflets appear mildly thickened, but open well. There is mild mitral regurgitation. Aortic Valve: The aortic valve is trileaflet. The aortic valve is mildly calcified. The peak aortic velocity is 2.1 m/sec. The aortic valve mean gradient is 9 mmHg. The calculated aortic valve area is 1.1 cm2. There is mild aortic regurgitation. Tricuspid Valve: The tricuspid valve leaflets are thin and pliable. There is mild to moderate tricuspid regurgitation. The right ventricular systolic pressure is estimated to be at least 46 mmHg based on an estimated right atrial pressure of 8 mm Hg. Pulmonic Valve: The pulmonic valve leaflets are thin and pliable; valve motion is normal. There is mild pulmonic regurgitation. Great Vessels: The aortic root is normal size. The dimensions of the ascending aorta are normal. The IVC is dilated (diameter is greater than 2.1 cm) yet it collapses greater than 50% with a sniff. This suggests a right atrial pressure of 8 mm Hg. Pericardium/ Pleura There is no pericardial effusion. There is no pleural effusion. MMode/2D Measurements & Calculations LVIDd: 5.3 cm LVOT diam: 2.1 cm LVIDs: 3.5 cm Ao root diam: 3.4 cm FS: 33.5 % asc Aorta Diam: 3.5 cm EPSS: 0.98 cm IVSd: 0.76 cm LVPWd: 0.64 cm LV russell. diameter/BSA (cm/m^2): 2.6 LV sys. diameter/BSA (cm/m^2): 1.7 LA A2 area: 24.9 cm2 RA long axis: 7.2 cm LA A4 area: 31.8 cm2 RA area: 25.9 cm2 LA length (vol): 6.9 cm RA vol: 79.2 ml LA vol: 97.6 ml RA : 38.1 ml/m2 LA vol index: 47.0 ml/m2 IVC diam: 2.1 cm RVD1 (basal): 3.0 cm RVD2 (mid): 1.9 cm TAPSE: 1.5 cm Doppler Measurements & Calculations Ao V2 max: 212.6 cm/sec LVOT Max Bryn: 72.7 cm/sec Ao V2 mean: 136.7 cm/sec LV V1 max P.1 mmHg Ao max P.8 mmHg LV V1 VTI: 14.4 cm Ao mean P.2 mmHg PREETI(I,D): 1.3 cm2 Ao V2 VTI: 36.3 cm PREETI(V,D): 1.1 cm2 sev ratio: 0.40 PREETI indexed to BSA (cm^2/m^2): 0.64 MV E max bryn: 104.8 cm/sec TR max bryn: 265.7 cm/sec MV A max bryn: 0.74 cm/sec TR max P.2 mmHg MV E/A: 141.9 PA V2 max: 74.3 cm/sec Med Peak E' Bryn: 9.6 cm/sec PA V2 mean: 50.9 cm/sec E/E' med: 10.9 PA mean P.2 mmHg Lat Peak E' Bryn: 13.0 cm/sec PA pr(Accel): 35.3 mmHg E/E' lat: 8.1 E/e' average: 9.5 MV dec time: 0.19 sec SV(LVOT): 48.2 ml Reading Physician:05:18 PM
[2024-12-16] MEDS: ASPIRIN EC 325 MG TABLET PO (14:30)
[2024-12-16] MEDS: ATORVASTATIN 20 MG TABLET 80 MG PO (14:30)
[2024-12-16] MEDS: ENOXAPARIN 40 MG/0.4 ML SYRINGE SUBCUT (14:32)
--- NOTE | 2024-12-16 15:15 | OT.IPNOTE ---
Per nursing best to see pt tomorrow for therapy eval as pt having a-fib/flutter.
--- NOTE | 2024-12-16 15:33 | PT-IP ANOTE ---
Holding Physical Therapy evaluation today. Per nursing pt is not medically ready today. Will check back tomorrow
--- NOTE | 2024-12-16 16:20 | P.HP_ITS ---
History of Present Illness History of Present Illness Date Patient Seen: 12/16/24 Time Patient Seen: 13:00 Chief complaint: Stroke Protocol , sent from Narrative: Pt with hx of diabetes NSTEMI and afib presents to ED with complaint of bilateral vision changes - on exam seems to have central field cut at about 11 o'clock bilaterally. LKN was last night so he is beyond onset window for acute intervention. He does take ASA 81mg at home which he did take this morning when he was wondering to come in or not. He feels basically fine except for the vision changes with no pain no balance problems. He is hungry. He does admit he has been having odd visual field issues like this over the last month which always resolved up to now. [facility] Medical History (Updated 12/16/24 @ 10:16 by Gerardo Frias MD) Chronic diarrhea Peripheral neuropathy Chronic atrial fibrillation Hypertension Social History household members: none Smoking Status: Current every day smoker alcohol intake: current Meds Home Medications and Allergies Home Medications Medication Instructions Recorded Confirmed Type ALLOPURINOL 100 mg PO Q DAY PRN kidney ##0 11/01/06 12/16/24 History atorvastatin 80 mg tablet 80 mg PO DAILY 12/16/24 12/16/24 History isosorbide mononitrate 30 mg 30 mg PO DAILY 12/16/24 12/16/24 History tablet,extended release 24 hr loperamide 2 mg capsule 2 mg PO DAILY 12/16/24 12/16/24 History Allergies Allergy/AdvReac Type Severity Reaction Status Date / Time latex [LATEX] Allergy Severe Rash Verified 12/16/24 10:01 Penicillins [PENICILLINS] Allergy Severe swelling Verified 12/16/24 10:01 lymph nodes Review of Systems Review of Systems Narrative: all systems reviewed and negative except as otherwise documented in HPI Exam Vital Signs (past 8 hours): - 12/16/24 09:55 12/16/24 09:59 12/16/24 09:59 Temperature 98.9 F Pulse Rate 110 H 116 H Respiratory Rate 14 Blood Pressure 144/101 H 144/101 H Pulse Oximetry 99 98 Oxygen Delivery Method Room Air 12/16/24 10:00 12/16/24 10:02 12/16/24 10:02 Temperature Pulse Rate 112 H 131 H Respiratory Rate 14 Blood Pressure 167/105 H Pulse Oximetry 98 99 Oxygen Delivery Method 12/16/24 10:30 12/16/24 10:30 12/16/24 10:39 Temperature Pulse Rate 103 H 112 H Respiratory Rate 17 Blood Pressure 164/102 H 164/102 H Pulse Oximetry 98 Oxygen Delivery Method 12/16/24 10:45 12/16/24 10:45 12/16/24 10:50 Temperature Pulse Rate 113 H Respiratory Rate 22 Blood Pressure 165/103 H 145/84 H Pulse Oximetry 99 Oxygen Delivery Method 12/16/24 10:50 12/16/24 10:55 12/16/24 10:55 Temperature Pulse Rate 104 H 99 H Respiratory Rate 19 18 Blood Pressure 155/76 H Pulse Oximetry 98 99 Oxygen Delivery Method 12/16/24 11:00 12/16/24 11:00 12/16/24 11:05 Temperature Pulse Rate 101 H 99 H Respiratory Rate 18 21 Blood Pressure 146/78 H Pulse Oximetry 98 98 Oxygen Delivery Method 12/16/24 11:05 12/16/24 11:10 12/16/24 11:10 Temperature Pulse Rate 100 H Respiratory Rate 21 Blood Pressure 152/92 H 159/95 H Pulse Oximetry 98 Oxygen Delivery Method 12/16/24 11:15 12/16/24 11:15 12/16/24 11:35 Temperature Pulse Rate 99 H 120 H Respiratory Rate 19 19 Blood Pressure 151/99 H Pulse Oximetry 98 99 Oxygen Delivery Method 12/16/24 11:36 12/16/24 11:36 12/16/24 11:40 Temperature Pulse Rate 121 H 112 H Respiratory Rate 21 21 Blood Pressure 149/114 H Pulse Oximetry 98 98 Oxygen Delivery Method 12/16/24 11:40 12/16/24 11:45 12/16/24 11:45 Temperature Pulse Rate 100 H Respiratory Rate 25 H Blood Pressure 163/91 H 158/84 H Pulse Oximetry 98 Oxygen Delivery Method 12/16/24 11:47 12/16/24 11:47 12/16/24 11:50 Temperature Pulse Rate 110 H Respiratory Rate 28 H Blood Pressure 156/66 H 148/84 H Pulse Oximetry 98 Oxygen Delivery Method 12/16/24 11:50 12/16/24 11:55 12/16/24 11:55 Temperature Pulse Rate 95 H 104 H Respiratory Rate 25 H 19 Blood Pressure 148/88 H Pulse Oximetry 98 98 Oxygen Delivery Method 12/16/24 12:00 12/16/24 12:00 12/16/24 12:05 Temperature Pulse Rate 100 H 99 H Respiratory Rate 20 19 Blood Pressure 149/94 H Pulse Oximetry 97 97 Oxygen Delivery Method 12/16/24 12:05 12/16/24 12:10 12/16/24 12:10 Temperature Pulse Rate 97 H Respiratory Rate 20 Blood Pressure 147/82 H 140/86 Pulse Oximetry 97 Oxygen Delivery Method 12/16/24 12:15 12/16/24 12:15 12/16/24 12:21 Temperature Pulse Rate 100 H 103 H Respiratory Rate 20 23 Blood Pressure 148/86 H Pulse Oximetry 97 97 Oxygen Delivery Method 12/16/24 12:21 12/16/24 12:21 12/16/24 12:25 Temperature Pulse Rate Respiratory Rate Blood Pressure 153/91 H 140/73 Pulse Oximetry Oxygen Delivery Method Room Air 12/16/24 12:25 12/16/24 12:30 12/16/24 12:30 Temperature Pulse Rate 97 H 99 H Respiratory Rate 18 19 Blood Pressure 148/98 H Pulse Oximetry 97 98 Oxygen Delivery Method 12/16/24 12:35 12/16/24 12:35 12/16/24 12:40 Temperature Pulse Rate 89 Respiratory Rate 16 Blood Pressure 158/90 H 149/90 H Pulse Oximetry 98 Oxygen Delivery Method 12/16/24 12:40 12/16/24 13:35 12/16/24 13:54 Temperature Pulse Rate 106 H 91 H Respiratory Rate 20 19 Blood Pressure 122/59 L Pulse Oximetry 97 99 Oxygen Delivery Method 12/16/24 13:54 12/16/24 14:00 12/16/24 14:00 Temperature Pulse Rate 82 82 Respiratory Rate 30 H 17 Blood Pressure 142/63 H Pulse Oximetry 99 98 Oxygen Delivery Method 12/16/24 14:30 Temperature Pulse Rate 95 H Respiratory Rate 31 H Blood Pressure Pulse Oximetry 99 Oxygen Delivery Method Oxygen Delivery Method Room Air Narrative Exam Narrative: laying in hospital bed Const Other: well developed well nourished Eyes Other: pupils equally round & responsive to light and accommodation - extraocular movements intact - reports field cut at 11 o'clock bilaterally - If I'm looking at your nose I can't see your left eye. Resp Other: clear to auscultation bilaterally on room air Cardio Other: elevated rate irregularly irregular rhythm GI Other: soft nontender active bowel sounds Neuro Other: alert awake oriented x3 conversant fully Extrem Other: moving all limbs equally Objective Labs 12/16/24 10:05 12/16/24 10:05 Labs: Laboratory Results - last 24 hr 12/16/24 10:05 WBC 10.1 RBC 4.72 Hgb 14.2 Hct 42.9 MCV 90.9 MCH 30.0 MCHC 33.0 RDW 16.6 H Plt Count 168 Neut % (Auto) 76.8 H Lymph % (Auto) 9.4 L [place] % (Auto) 6.5 Eos % (Auto) 6.5 H Baso % (Auto) 0.8 Neut # (Auto) 7800 H Lymph # (Auto) 900 L [place] # (Auto) 700 Eos # (Auto) 700 H Baso # (Auto) 100 PT 11.7 INR 1.0 APTT 33 Sodium 140 Potassium 5.0 Chloride 107 Carbon Dioxide 20 L BUN 74 H Creatinine 3.36 H Estimated GFR 17 L BUN/Creatinine Ratio 22.0 Glucose 161 H Calcium 9.6 Total Bilirubin 1.4 H AST 19 ALT 20 Alkaline Phosphatase 94 Total Creatine Kinase 90 Troponin I 0.028 Total Protein 7.5 Albumin 4.7 Globulin 2.8 Albumin/Globulin Ratio 1.7 Assessment & Plan Assessment & Plan narrative: #bilateral visual field loss #suspected CVA initial head CT wnl, GFR is too low for CTA - MR head and echocardiogram are pending Ordered ASA 325, lovenox 40, continue home max statin, PT/OT eval. #Atrial fibrillation with rapid ventricular response placed on cardizem drip in ER, h.r. is calming down, resume home metoprolol and look to titrate drip down as able eliquis ordered he will need cards referral and AC plan on discharge #diet controlled diabetes monitor with fingersticks, diabetic diet Dispo: Admit inpt ICU on cardizem drip diet: carb/heart healthy Code: DNR PCP: Raina MDM: Teja Sam Time-Based Coding :: [TOTAL MINUTES] spent with patient and on the chart (including review of chart, obtaining history, exam, reviewing outside data, placing orders, documenting exam and treatment plan, and counseling patient) on [DATE].
[2024-12-16] MEDS: METOPROLOL ER 50 MG TABLET PO (16:56)
[2024-12-16] MEDS: INSULIN LISPRO 100 UNIT/ML 3ML VIAL SUBCUT (17:50)
[2024-12-16 17:51] LABS: MRSA (Nasal) PCR NOT DETECTED (Not Detect)
[2024-12-16] MEDS: ACETAMINOPHEN 325 MG TABLET 650 MG PO (18:11)
[2024-12-16] MEDS: APIXABAN 5 MG TABLET 2.5 MG PO (20:22)
[2024-12-16] MEDS: diphenhydrAMINE 25 MG TABLET PO (23:45)
[2024-12-17] VITALS (28 sets, daily range): BP systolic 131–169; BP diastolic 66–107; PULSE 75–98; RESP 18–43; TEMP 36.2; O2SAT 86–98
--- NOTE | 2024-12-17 01:27 | PC.NURSE ---
Addendum entered by Sandra Smith R.N. 12/17/24 06:58: Patient remains off diltiazem, still in A-fib CVR 80s, VSS. PO Benadryl given for sleep and PO Tylenol given for headache. Original Note: Criminal Investigator Notes-Diltiazem off at 1900 d/t HR low at 33 and sustaining 40s, BP 119/73, other VSS. Patient is oriented x4 but forgetful. Bed alarm on. Order for Benadryl 25mg PO obtained for sleep. Dr. Paris aware of HR and diltiazem stopped.
[2024-12-17 05:11] LABS: Add Manual Diff / Slide Review NO; Basophils Absolute Auto 0 /uL (0-100); Basophils Percent Auto 0.6 % (0-2); Eosinophils Absolute Auto 500 /uL (0-450); Eosinophils Percent Auto 5.9 % (2-4); Hematocrit 35.6 % (41-53); Lymphocytes Absolute Auto 900 /uL (1100-4500); Lymphocytes Percent Auto 10.8 % (25-40); Mean Corpuscular HGB Conc 33.6 % (30-36); Mean Corpuscular Hemoglobin 30.2 PG (26-34); Monocytes Absolute Auto 700 /uL (0-900); Monocytes Percent Auto 9.1 % (3-14); Neutrophils Absolute Auto 5800 /uL (1500-7000); Neutrophils Percent Auto 73.6 % (50-75); Platelet Count 135 X10^3/uL (150-400); Red Blood Cell Count 3.96 X10^6/uL (4.5-5.9); Red Cell Distribution Width 15.5 % (11.6-14.8); White Blood Cell Count 7.9 X10^3/uL (4.5-11.0)
[2024-12-17 05:25] LABS: Alanine Aminotransferase 24 IU/L (<50); Albumin 3.8 g/dL (3.5-5.0); Albumin Globulin Ratio 1.5 (1.0-2.8); Alkaline Phosphatase 77 U/L (38-126); Aspartate Aminotransferase 20 IU/L (17-59); Bilirubin Total 0.8 mg/dL (0.2-1.3); Blood Urea Nitrogen 72 mg/dL (9-20); Carbon Dioxide 18 mmol/L (22-32); Chloride 109 mmol/L (98-107); Estimated Glomerular Filt Rate 19 mL/min (>60); Globulin 2.5 g/dL (1.7-4.1); Glucose 128 mg/dL (70-99); HEMOLYSIS 19 (0-50); Potassium 5.2 mmol/L (3.4-5.1); Sodium 137 mmol/L (137-145); Total Protein 6.3 g/dL (6.3-8.2)
[2024-12-17] MEDS: ACETAMINOPHEN 325 MG TABLET 650 MG PO (05:43)
[2024-12-17] MEDS: APIXABAN 5 MG TABLET 2.5 MG PO (09:20)
[2024-12-17] MEDS: ISOSORBIDE MONONITRATE ER 30 MG TABLET PO (09:20)
[2024-12-17] MEDS: ATORVASTATIN 20 MG TABLET 80 MG PO (09:20)
[2024-12-17] MEDS: INSULIN LISPRO 100 UNIT/ML 3ML VIAL SUBCUT (09:21)
--- NOTE | 2024-12-17 12:00 | PT.IIE ---
Current Diagnoses Cerebral infarction, unspecified (12/16/24) Medical History (Last Updated 01/22/22 @ 07:51 by Christy Santizo MD) Chronic atrial fibrillation Chronic diarrhea Hypertension Peripheral neuropathy Physical Therapy Inpatient Evaluation/Re-Eval M1 PT/OT-IP Prior Functional Status Start: 12/17/24 13:17 Freq: NEEDED Status: Active Protocol: Document 12/17/24 12:00 AB (Rec: 12/17/24 13:32 AB [id number]) Medical Review Prior Functional Status Medical History Reviewed Yes Communication able to make needs known Mobility and Gait pt stated that he was independent with all mobilities and ambulation without AD Social History Household Members none Living Arrangements House Number of Floors (Floors) 3 or More Floors Number of Stairs To Enter/Railing? has multiple steps (per pt) with L rail to enter the house multiple steps to get to other levels of the house with B rails Home Environment High Toilet,Walk in Shower Home Equipment Grab Bars In Shower M2 PT-IP Current Condition Start: 12/17/24 13:17 Freq: NEEDED Status: Active Protocol: Document 12/17/24 12:00 AB (Rec: 12/17/24 13:32 AB [id number]) Physical Therapy Current Condition Current Condition Evaluation Date 12/17/24 Treatment Diagnosis TIA; difficulty in walking Onset Date 12/16/24 M3 PT-IP Subjective Start: 12/17/24 13:17 Freq: NEEDED Status: Active Protocol: Document 12/17/24 12:00 AB (Rec: 12/17/24 13:32 AB [id number]) Subjective Physical Therapy Visit Type Type Initial Evaluation Visit Start Time 12:00 Visit Stop Time 12:20 Number of [employer] Visits 0 Physical Therapy Visit Comments Patient Comments agreeable to do PT M4 PT-IP Mobility and Gait Start: 12/17/24 13:17 Freq: NEEDED Status: Active Protocol: Document 12/17/24 12:00 AB (Rec: 12/17/24 13:32 AB [id number]) PT-Bed Mobility Assessment Supine to Sit Supine to Sit Independent PT-Transfer Assessment Sit to and From Stand Sit to and from Stand Standby Assistance,1 Person Assistance,Use of Upper Extremities Equipment Transfer Assistive Device None,Gait Belt Orthotic/Prosthetic Devices or Brace: No Transfers Transfer Destination Bed,Chair Transfer Technique ambulated Transfer Ability Level of Assist Standby Assistance Comments Mobility Comments pt in bed and stated that he moves really well and his only problem is his vision. obtained PLOF and home set up. pt agreed to do PT eval. completed supine to sit mod I. sit to stand SBA to CGA and ambulated ~ 100 ft without AD. presents with unsteady gait with (+) LOB x 1 during turning requiring min A for recovery. pt c/o brain feeling foggy and does not want to walk farther. pt ambulated back to his room. BP : 168/87. pt sat on the chair and rested. pt agreed to do steps/stairs. positioned step stool. pt completed up/down step using L rail CGA. repeated x 2 sets. pt sat back on chair but does not want to stay up on the chair. step transfer to EOB SBA. Left pt with NAC. Gait Assessment Gait Gait Assistance Required: Standby Assistance,Contact Guard Assist,Minimum Assistance Distance (Feet) 100 Able to Maintain Weight Bearing Status Yes During Gait Assistive Devices Assistive Device None,Gait Belt Orthotic/Prosthetic Devices or Brace: No Gait Deviations General Gait Pattern Ataxic Factors Limiting Gait Function Factors Limiting Gait Function Decreased Activity Tolerance, Decreased Sensation,Poor Balance,Poor Safety Awareness Stair Climbing Assessment Evaluation Level of Assist On Stairs Contact Guard Assistance Devices Stair Climbing Assistive Devices Left Railing Technique/Endurance Stair Climbing Direction Ascend and Descend Stair Climbing Technique Step to Step Number of Steps Climbed 1 Query Text: Stair Climbing Set # Repetitions (reps) 2 PT-Balance Assessment Sitting Balance and Reactions Static Sitting Balance Ability Normal Dynamic Sitting Balance Ability Good Standing Balance and Reactions Static Standing Balance Ability Good Dynamic Standing Balance Ability Fair Device Used without AD M5 PT-IP Objective Assessments Start: 12/17/24 13:17 Freq: NEEDED Status: Active Protocol: Document 12/17/24 12:00 AB (Rec: 12/17/24 13:32 AB [id number]) Orientation Orientation/Cognition Level of Alertness Alert Orientation Name,Place,Situation Language Function Ability No Deficits Noted Safety Awareness Decreased Safety Awareness Memory Description No Deficits Noted Gross Range of Motion Lower Extremity ROM Assessment Within Functional Limits Strength Lower Extremity Strength Assessment Within Functional Limits Sensation Assessment Sensation Gross Sensation Right LE Impaired,Left LE Impaired Sensation Description Numbness Comments Sensation Comments BLE neuropathy Muscle Tone Muscle Tone WNL Yes M6 PT-IP Treatment Start: 12/17/24 13:17 Freq: NEEDED Status: Active Protocol: Document 12/17/24 12:00 AB (Rec: 12/17/24 13:32 AB [id number]) Physical Therapy Treatment Education Education Provided Safety M7 PT-IP Assessment and Plan Start: 12/17/24 13:17 Freq: NEEDED Status: Active Protocol: Document 12/17/24 12:00 AB (Rec: 12/17/24 13:32 AB [id number]) PT Summary Assessment and Plan Potential Rehabilitation Potential Fair Status of Condition at Evaluation Evolving Summary Impairments Pain,ROM,Strength,Balance, Coordination,Sensation,Tone, Cognition,Bed Mobility, Transfers,Gait,Activity Tolerance Assessment Summary pt is an 84 y/o M who is admitted for TIA. pt requiring SBA to CGA with ambulation without AD but with (+) LOB requiring min A. pt c/o feeling foggy affecting mobility. will continue to assess progress. pt lives alone and will need assistance at this time. Goals Bed Mobility Goal Independent Transfer Goal Independent Gait Goal Independent Gait Distance 150 Other Goals up/down 12 steps L rail mod I Days to Meet Goals 10 Frequency of Treatment Frequency Of Treatment Once a Day Treatment Plan Physical Therapy Treatment Plan Bed Mobility Training,Transfer Training,Gait Training, Therapeutic Exercise,Balance Retraining,Discharge Planning, Hot or Cold Pack,Neuromuscular Re-ed,Coordination Retraining Precautions Other Precautions falls Recommendations To Nursing Amount of Assist Needed 1 Person Assist Discharge Recommendations PT Discharge Recommendations Home with Assistance, Outpatient PT Transportation Needs at Discharge Private Vehicle
--- NOTE | 2024-12-17 12:01 | OT.IP.EVAL ---
Current Diagnoses Cerebral infarction, unspecified (12/16/24) Past Medical History (Last Updated 01/22/22 @ 07:51 by Christy Santizo MD) Chronic atrial fibrillation Chronic diarrhea Hypertension Peripheral neuropathy Occupational Therapy Inpatient Evaluation/Re-Eval M1 PT/OT-IP Prior Functional Status Start: 12/17/24 13:17 Freq: NEEDED Status: Complete Protocol: Document 12/17/24 12:00 AB (Rec: 12/17/24 13:32 AB [id number]) Medical Review Prior Functional Status Medical History Reviewed Yes Communication able to make needs known Mobility and Gait pt stated that he was independent with all mobilities and ambulation without AD Social History Household Members none Living Arrangements House Number of Floors (Floors) 3 or More Floors Number of Stairs To Enter/Railing? has multiple steps (per pt) with L rail to enter the house multiple steps to get to other levels of the house with B rails Home Environment High Toilet,Walk in Shower Home Equipment Grab Bars In Shower M1 PT/OT-IP Prior Functional Status Start: 12/17/24 14:05 Freq: NEEDED Status: Active Protocol: Document 12/17/24 14:10 [facility] (Rec: 12/17/24 14:33 [facility] Desktop) Medical Review Prior Functional Status Medical History Reviewed Yes Communication able to make needs known Mobility and Gait pt stated that he was independent with all mobilities and ambulation without AD Activities of Daily Living and IADL's Pt states in completely independent with all ADL,IADL and drives. Social History Household Members none Living Arrangements House Number of Floors (Floors) 3 or More Floors Number of Stairs To Enter/Railing? has multiple steps (per pt) with L rail to enter the house multiple steps to get to other levels of the house with B rails Home Environment High Toilet,Tub/Shower Home Equipment Grab Bars In Shower Additional Social History Comment Pt has walking staffs. M2 OT-IP Current Condition Start: 12/17/24 14:05 Freq: Status: Active Protocol: Document 12/17/24 14:10 [facility] (Rec: 12/17/24 14:33 [facility] Desktop) Occupational Therapy Current Condition Current Condition Evaluation Date 12/17/24 Treatment Diagnosis TIA, visual deficits Diagnosis Onset Date 12/16/24 M3 OT- IP Subjective and Pain Start: 12/17/24 14:05 Freq: Status: Active Protocol: Document 12/17/24 14:10 [facility] (Rec: 12/17/24 14:33 [facility] Desktop) OT- Subjective Occupational Therapy Visit Type Type Initial Evaluation Visit Start Time 11:04 Visit Stop Time 12:01 Occupational Therapy Visit Comments Patient Comments Pt agreed to do OT eval and do oral care needs. Patient/Caregiver Goals TO go home. OT Pain Assessment Pain When Pain Assessed At Rest Pain Present Pain Present Pain Reported Location head Description Stabbing M4 OT- IP ADL's Start: 12/17/24 14:05 Freq: Status: Active Protocol: Document 12/17/24 14:10 [facility] (Rec: 12/17/24 14:33 [facility] Desktop) OT [id number] Comments OT Self-Feeding Comments Not at mealtime. Pt states at home just has viviana and milk in the mornings and go out for lunch and more milk at night. OT ADL-Grooming Comments OT Grooming Comments Pt able to do while standing at the sink. OT ADL-Oral Care General Eval Oral Care Ability Independent Comments Oral Care Comments While standing. OT ADL-Dressing Comments OT Dressing Comments Not performed. OT ADL-Toileting General Evaluation Toileting Ability Independent Comments OT Toileting Comments Pt has been in and out of the toilet on his own. OT ADL-Bathing Comments OT Bathing Comments Pt would benefit from a shower chair at home for safety. Pt states has a tub/shower but told PT has a walk in shower set-up. M5 OT- IP IADL's Start: 12/17/24 14:05 Freq: Status: Active Protocol: Document 12/17/24 14:10 [facility] (Rec: 12/17/24 14:33 [facility] Desktop) OT-Instrumental Activities of Daily Living Medication Management Medication Management Comments Pt will benefit from supervision due to decreased vision. Money Management Money Management Comments Pt would benefit from assist. Meal Preparation Meal Preparation Comments Pt will benefit from assist. Beach Expert Beach Expert Comments Pt will benefit from assist. Driving Driving Comments Pt aware best not to drive at this time. M6 OT- IP Functional Cognition Start: 12/17/24 14:05 Freq: Status: Active Protocol: Document 12/17/24 14:10 [facility] (Rec: 12/17/24 14:33 [facility] Desktop) Cognitive Factors Limiting Selfcare Function Cognitive Ability Level of Alertness Alert Patient Orientation Name,Age,Birthday,Month,Date, Year,Day of Week,Place, Situation Attention Span Ability Capable of Focused Attention, Capable of Sustained Attention Memory Description Short Term Impaired Safety Awareness Underestimates Need for Assistance Cognitive Tests SLUMS Pt scored 28/30 able to recall 3/5 objects after time passed which implies normal for cognitive needs. Cognitive Comments Cognitive Assessment Comments Pt has difficulty to describe his visual deficits and when it all started. Pt states his vision with his left eye has not been good since his cataract completed years ago. Pt admits that he has not seen an eye doctor in 6 years. Pt states realizes will not drive at this time. Pt will benefit from seeing an eye doctor. OT- Vision and Hearing OT- Hearing Assessment OT- Hearing Assessment WFL OT- Vision Assessment Occular Pursuits WFL Vision Assessment Comments Did Amsler grid test on the pt . For each eye tested, pt states the left side of the grid lines were distorted and wavy. The test being positive for distorted and wavy lines may indicate macular degeneration. Best for pt to go see an screw eye assembler. M7 OT- IP Mobility and Balance Start: 12/17/24 14:05 Freq: Status: Active Protocol: Document 12/17/24 14:10 [facility] (Rec: 12/17/24 14:33 [facility] Desktop) OT- Bed Mobility Assessment Supine to Sit Supine to Sit Assist Independent Sit to Supine Sit to Supine Assist Independent OT-Transfer Assessment Sit to and From Stand Sit to and from Stand Independent Transfers Transfer Ability Standby Assistance Technique Transfer Destination Bed Comments Mobility Comments Distant SBA while in the room. OT- Balance Assessment Sitting Balance and Reactions Static Sitting Balance Ability Normal Dynamic Sitting Balance Ability Good Standing Balance and Reactions Static Standing Balance Ability Good Dynamic Standing Balance Ability Fair M8 OT- IP Objective Assessments Start: 12/17/24 14:05 Freq: Status: Active Protocol: Document 12/17/24 14:10 [facility] (Rec: 12/17/24 14:33 [facility] Desktop) OT Gross Range of Motion Upper Extremity Range of Motion Assessment Right Impaired OT Strength Upper Extremity Strength Assessment Right Impaired Comments Strength Comments Decreased ROM for shoulder flexion. OT Sensation Assessment Comments Summary Comments Intact for light touch. M9 OT- IP Assessment and Plan Start: 05/16/25 14:05 Freq: Status: Active Protocol: Document 12/17/24 14:10 [facility] (Rec: 12/17/24 14:33 [facility] Desktop) OT Summary Assessment and Plan Potential Rehabilitation Potential Good Analytic Complexity at Evaluation Low Summary OT Impairments Balance,Functional Mobility, Dressing,Bathing,Toilet Transfers,Shower Transfers Progress Towards Goals Progressing Toward Goals Assessment Summary Pt low complexity and main barriers are decreased vision and dynamic balance. Pt when trial of Amsler grid indicated possible macular degeneration . Pt will benefit from assist at home and to see an screw eye assembler. Goals Self-Feeding Goal Independent Grooming Goal Independent Dressing Goal Independent Toileting Goal Independent Bathing Goal Independent Toilet Transfer Goal Independent Days to Meet Goals 3 Frequency of Treatment Frequency Of Treatment Once a Day Treatment Plan OT Treatment Plan ADL Training,Functional Cognition Training,Functional Mobility,Patient/Family Education,Discharge Planning Other Treatment Recommendations and Next Go over strategies to help Treatment Focus adapt safety for his environment and needs. Discharge Recommendations OT Discharge Recommendations Home with Assistance, Outpatient PT Home Equipment Needs shower chair Transportation Needs at Discharge Private Vehicle
--- NOTE | 2024-12-17 14:06 | DI.MRI.S_ITS ---
PROCEDURE: MR HEAD/BRAIN WO CON INDICATIONS: suspected cva TECHNIQUE: Non-contrast axial T1 spin echo, axial T2 fast spin echo, sagittal and axial FLAIR, coronal T2 fast spin echo, axial gradient echo, axial diffusion and ADC through the brain. COMPARISON: [facility], CT, CT HEAD/BRAIN WO CON, 01/22/2022, 8:28. [facility], MR, MR ANGIO HEAD WO CON, 12/17/2024, 10:25. [facility], CT, CT HEAD/BRAIN WO CON, 12/16/2024, 11:24. FINDINGS: Image quality: Diagnostic, with note made of motion artifact. CSF spaces: Ventricles appear symmetric in size and shape. Basal cisterns are patent. No extra-axial fluid collections. Brain: There is abnormal diffusion-weighted signal seen throughout the right INSURANCE SALES PRODUCER distribution, with associated dark signal on the ADC map. There is developing T2 weighted signal seen within this region. No intracranial bleeds or mass effects. There is cerebral volume loss for age. There are periventricular and deep white matter chronic small vessel ischemic changes. Brainstem appears normal. No chronic ischemic insults. Normal intravascular flow voids are present. Skull and face: Calvarial bone marrow is normal in signal. Orbits are normal. Note is made of bilateral lens replacements. Sinuses: Sinuses and mastoids are clear. IMPRESSION: Subacute infarction involving the right INSURANCE SALES PRODUCER distribution. Dictated by: Enrico Warner M.D. on 12/17/2024 at 16:15 Approved by: Enrico Warner M.D. on 12/17/2024 at 16:20
--- NOTE | 2024-12-17 14:23 | CM.DANOTE ---
Addendum entered by CALEB Pierre 12/17/24 14:29: Correction: Patient lives independently, alone, on [facility]. Daughter lives out of state. Original Note: Initial DCP Assessment Note Pt is a 84 yo male, resident of [facility], presents with left visual field deficit , concerning for stroke. patient admitted INPT. MRA neg for stroke. PT has assessed and patient cleared for return home w/outpatient follow up. PCP: Dr Raina Mike: [facility] Reviewed chart, pt discussed in multidisciplinary rounds this morning. Patient lives independently with spouse on [facility] and anticipated to return upon discharge. No needs from this SW team identified. No barriers identified at this time to patient's safe discharge home w/family to assist; close outpatient f/u recommended. CM team will plan to follow clinical course closely in case any DC needs or concerns arise. CALEB Guillory Discharge Planning/Care Management CM Discharge Assessment Start: 12/16/24 12:21 Freq: Status: Active Protocol: Document 12/17/24 14:20 [facility] (Rec: 12/17/24 14:23 [facility] [id number]) Discharge Planning Assessment Assigned Application Security Architect CALEB Orozco DPOA/Assigned Designee Name Cecy Wong Contact Information [phone] Advance Directives? Yes Advance Directives on File No History Provided By Patient,Medical Record Has Patient been admitted in last 30 No days? Prior Living Arrangements House Household Members spouse,none Type of transporation used prior to Drives own vehicle admit Independent with ADL's Yes Is patient alert and oriented? Yes Needs Assistance With Home Chores / Shopping Barriers to Discharge No Discharge Plan Home Transportation Arrangement Family Referrals Initiated None needed
[2024-12-17 15:08] LABS: Hemoglobin A1C% w Est Avg Glu 7.1 % (4.0-6.0)
--- NOTE | 2024-12-17 16:57 | PM.DS.1 ---
History of Present Illness History of Present Illness Date Patient Seen: 12/17/24 Time Patient Seen: 16:57 Date of Onset of Symptoms: 12/16/24 Chief complaint: Stroke Protocol , sent from Narrative: Feeling ok this morning field deficit now appears like a glowing orb of light in both baker of vision at 11 o clock position - able to work with PT felt tired after some work with them but ok to go home per their eval. Appetite has been ok, he feels ok going to the bathroom, maybe some mild headache, otherwise no complaints would like to go home. Discharge Providers Provider Date of admission: 12/16/24 12:19 Discharge Date: 12/17/24 Primary care physician: Baldo Ortega MD Consults: 12/16/24 14:10 Consult to Occupational Therapy Evaluate & Treat Comment: Physician Instructions: Evaluate and treat Consult to Physical Therapy Evaluate & Treat Comment: Physician Instructions: Evaluate and Treat Discharge provider: Jethro Paris MD Summary Hospital Course Discharge Diagnosis: #Visual field cut bilateral #putative CVA #hyperlipidemia #CKD 4 #atrial fibrillation Hospital Course: Pt with hx of diabetes NSTEMI and afib presents to ED with complaint of bilateral vision changes - on exam reported to have central field cut at about 11 o'clock bilaterally. LKN was the previous night so he was beyond onset window for acute intervention. He does take ASA 81mg at home which he did take that morning when he was wondering to come in or not. He feels basically fine except for the vision changes with no pain no balance problems. He is hungry. He did admit he has been having odd visual field issues like this over the last month which always resolved up to now. He was admitted for further management - CT and MRA were wnl and MRI read was still pending at time of discharge although optic lobe stroke seems most likely. While inpatient his afib was addressed with a cardizem drip which was able to be stopped to resume his usual home metoprolol. In addition he was initiated on anticoagulation with eliquis 2.5 in addition to his usual ASA 81. He reported some revolution in the appearance of the visual deficit such that it looked like a glowing ball of light int he 11 o clock position but still obscured some vision there. I have advised him not to drive for the moment. We will be planning for cardiology and ophthalmology f/up as outpt. Status at Discharge Cognitive/behavioral status at discharge: at baseline, oriented Functional status at discharge: independent ambulation Overall status at discharge: patient is progressing back to baseline Time Spent with Patient Time spent: Greater than 30 minutes Exam Vital Signs (past 8 hours): - 12/17/24 09:00 12/17/24 09:00 12/17/24 09:30 Temperature 97.2 F L Pulse Rate 81 85 Respiratory Rate 21 20 Blood Pressure 169/83 H Pulse Oximetry 98 98 12/17/24 10:00 12/17/24 10:00 12/17/24 10:30 Temperature Pulse Rate 84 80 Respiratory Rate 20 29 H Blood Pressure 158/102 H Pulse Oximetry 98 95 12/17/24 11:19 12/17/24 11:30 12/17/24 11:31 Temperature Pulse Rate Respiratory Rate Blood Pressure 165/107 H Pulse Oximetry 86 L 91 12/17/24 12:00 12/17/24 12:08 12/17/24 12:11 Temperature Pulse Rate 91 H 98 H Respiratory Rate 35 H 43 H Blood Pressure 137/83 Pulse Oximetry 97 Oxygen Delivery Method Room Air Narrative Exam Narrative: pleasant elder laying in hospital bed Const Other: well developed well nourished Eyes Other: perrla, eomi with visual field cut in upper left quadrant Cardio Other: irregular rhythm, s1/s2 no pedal edema GI Other: soft nontender active bowel sounds Neuro Other: alert awake conversant oriented fully with no aphasia CN2-12 grossly intact, upper left visual field deficit moving all limbs equally Objective Labs 12/17/24 04:13 12/17/24 04:13 Labs: Laboratory Results - last 24 hr 12/16/24 12/17/24 12/17/24 16:25 04:13 14:46 WBC 7.9 RBC 3.96 L Hgb 12.0 L Hct 35.6 L MCV 90.0 MCH 30.2 MCHC 33.6 RDW 15.5 H Plt Count 135 L Neut % (Auto) 73.6 Lymph % (Auto) 10.8 L [place] % (Auto) 9.1 Eos % (Auto) 5.9 H Baso % (Auto) 0.6 Neut # (Auto) 5800 Lymph # (Auto) 900 L [place] # (Auto) 700 Eos # (Auto) 500 H Baso # (Auto) 0 Sodium 137 Potassium 5.2 H Chloride 109 H Carbon Dioxide 18 L BUN 72 H Creatinine 3.13 H Estimated GFR 19 L BUN/Creatinine Ratio 23.0 H Glucose 128 H Hemoglobin A1c 7.1 H Calcium 9.0 Total Bilirubin 0.8 AST 20 ALT 24 Alkaline Phosphatase 77 Total Protein 6.3 Albumin 3.8 Globulin 2.5 Albumin/Globulin Ratio 1.5 Nasal Screen MRSA (PCR) Not detected PFSH Medical History (Updated 12/16/24 @ 10:16 by Gerardo Frias MD) Chronic diarrhea Peripheral neuropathy Chronic atrial fibrillation Hypertension Social History household members: spouse and none Smoking Status: Current every day smoker alcohol intake: current Discharge Assessment & Plan Assessment and Plan Assessment: #bilateral visual field loss #putative CVA initial head CT wnl, GFR too low for CTA - MRA was wnl, echocardiogram confirmed afib with no wall abnormalities, MRI brain read pending Plan is to dc home on ASA 81, eliquis 2.5 bid, continue home max statin - dc meds will be sent via outpt EMR to [facility] with optho referral #Atrial fibrillation with rapid ventricular response required cardizem drip initially but at time of discharge had resumed home metoprolol with stable rate eliquis ordered he will need cardiology referral on discharge #diet controlled diabetes stable monitor #chronic kidney disease stage 4 stable issue unconnected to current admission, encourage hydration #hyperlipidemia stable continue home statin max dose Dispo: home to f/up as outpt diet: carb/heart healthy Code: DNR PCP: Raina MDM: Daughter Cecy Discharge Plan Discharge Plan Patient Disposition: Home Provider Discharge Comment: via cab after MRI - meds sent to [facility] via outside EMR Discharge orders & Medications Prescriptions: Continued ALLOPURINOL 100 mg PO Q DAY PRN (Reason: kidney ) Qty: 0 atorvastatin 80 mg tablet 80 mg PO DAILY loperamide 2 mg capsule 2 mg PO DAILY isosorbide mononitrate 30 mg tablet extended release 24 hr 30 mg PO DAILY Follow up/Referrals: Baldo Ortega MD [Primary Care Provider] - Visit Report/Discharge Packet Stand Alone Forms: Patient Portal/API, Stroke Signs & Symptoms Discharge Data Primary Care Provider: Baldo Ortega V
== END 2024-12-17 18:05 | disposition home or self-care (01) | DRG 65 ==
LOC: ED 12:20 → AC 12:21 → ICU 12:32
PROVIDERS: Admitting Provider Family Medicine; Emergency Provider Emergency Medicine; Family Provider Internal Medicine; PCP Internal Medicine; Referring Provider Emergency Medicine; Visit Provider Family Medicine
DX: I63.9 Cerebral infarction, unspecified (principal); N18.4 Chronic kidney disease, stage 4 (severe); I25.2 Old myocardial infarction; F17.200 Nicotine dependence, unspecified, uncomplicated; I48.91 Unspecified atrial fibrillation; E78.5 Hyperlipidemia, unspecified; E11.22 Type 2 diabetes mellitus with diabetic chronic kidney disease; R29.701 NIHSS score 1; I12.9 Hypertensive chronic kidney disease with stage 1 through stage 4 chronic kidney disease, or unspecified chronic kidney disease; H54.3 Unqualified visual loss, both eyes; K52.9 Noninfective gastroenteritis and colitis, unspecified; Z79.82 Long term (current) use of aspirin; Z66 Do not resuscitate
CPT/HCPCS: 36415; 70450; 70544; 70551; 80053; 82550; 82962; 83036; 84484; 85025; 85610; 85730; 87797; 93005; 93306; 96365; 96366; 97116; 97129; 97130; 97162; 97166; 99284; 99291; J1650; J1815